=== PATIENT | female | born 1955 | race Caucasian/White ===

== ENCOUNTER 2023-06-02 07:26 | Outpatient (OUT) | payer MEDICARE, SELFPAY ==
--- NOTE | 2023-06-02 07:33 | MM_ITS ---
Patient: JESS SILVA Exam Date: 06/02/2023 : 1955 Gender:F Ordering : DR. HEYDI WALKER . Admission #: [id number] Family : Order #: [id number] CLICK HERE TO VIEW EXAM RADIOLOGY REPORT PROCEDURE: MM TOMOSYNTHESIS SCREENING BI COMPARISON: MG MAMM SCREEN 3D GEOVANNI CAD, 05/17/2021. MG MAMM SCREEN 3D GEOVANNI CAD, 05/18/2022. INDICATIONS: Screening Calculator Name NCI Breast Cancer Risk Assessment Tool 5 Year Breast Cancer Risk 1.90% Lifetime Breast Cancer Risk 6.20% Personal Breast Cancer No Personal Ovarian Cancer No Treatments None Family Cancers None LOCATION: [facility] BREAST COMPOSITION: Heterogeneously dense,which may obscure small masses. FINDINGS: DIAGNOSTIC CATEGORY 1--NEGATIVE. NO CHANGE FROM COMPARISON ASSESSMENT. Scattered benign-appearing calcifications are present. Scattered benign-appearing lymph nodes are present. RIGHT BREAST: No significant suspicious finding. LEFT BREAST: No significant suspicious finding. RECOMMENDATIONS: ROUTINE MAMMOGRAM AND CLINICAL EVALUATION IN 12 MONTHS. PLEASE NOTE: A NORMAL MAMMOGRAM DOES NOT EXCLUDE THE POSSIBILITY OF BREAST CANCER. A CLINICALLY SUSPICIOUS PALPABLE LUMP SHOULD BE BIOPSIED. Dictated by: Jovi Tristan MD on 06/02/2023 at 09:33 Approved by: Jovi Tristan MD on 06/02/2023 at 09:36
== END 2023-06-02 07:27 | disposition home or self-care (01) ==
LOC: MAMMO 07:26
PROVIDERS: PCP Family Medicine; Visit Provider Family Medicine
DX: Z12.31 Encounter for screening mammogram for malignant neoplasm of breast (principal)
CPT/HCPCS: 77063; 77067

== ENCOUNTER 2023-12-18 07:56 | Outpatient (OUT) | payer MEDICARE, SELFPAY ==
--- NOTE | 2023-12-18 08:04 | XR_ITS ---
[address] [address] Patient Name: JESS SILVA MRN: [id number] date: 1955 Sex: F Assigned Patient Location: [facility] Current Patient Location: [facility] Accession/Order Number: [id number] Exam Date: 12/18/2023 08:24 Report Date: 12/18/2023 09:04 At the request of: HEYDI WALKER Procedure: XR DEXA axial skeleton EXAMINATION: XR DEXA axial skeleton HISTORY: Primary Ovarian Failure E28.39 COMPARISON: DEXA bone densitometry 05/17/2021 TECHNIQUE: Dual-energy X-ray absorptiometry (DXA) was performed. FINDINGS: SPINE ANALYSIS: Average bone mineral density is 1.337 g/cm2. T-score (standard deviation relative to young adult mean): 1.1 . +1.4% change since prior study. HIP ANALYSIS: Lowest bone mineral density is within the left femoral trochanter, 0.569 g/cm2. T-score (standard deviation relative to young adult mean): -2.5 . -8.5% change since prior study. XR/XR DEXA axial skeleton IMPRESSION: [employer] Classification: Osteoporosis - High Fracture Risk Electronically authenticated by: SILVERIO WORLEY Date: 12/18/2023 09:04
== END 2023-12-18 07:57 | disposition home or self-care (01) ==
LOC: RAD 07:56
PROVIDERS: PCP Family Medicine; Visit Provider Family Medicine
DX: Z00.01 Encounter for general adult medical examination with abnormal findings (principal); E28.39 Other primary ovarian failure; M81.0 Age-related osteoporosis without current pathological fracture
CPT/HCPCS: 77080

== ENCOUNTER 2024-06-05 07:02 | Outpatient (OUT) | payer MEDICARE, SELFPAY ==
--- NOTE | 2024-06-05 07:05 | MM_ITS ---
Patient Name: JESS SILVA MR#: [id number] : 1955 Exam Date: 06/05/2024 Ordering Doctor: DR. HEYDI WALKER . RADIOLOGY REPORT PROCEDURE: MM TOMOSYNTHESIS SCREENING BI COMPARISON: MM TOMOSYNTHESIS SCREENING BI, 06/02/2023. MG MAMM SCREEN 3D GEOVANNI CAD, 05/18/2022. MG MAMM SCREEN 3D GEOVANNI CAD, 05/17/2021. MG MAMM GEOVANNI SCRN W CAD DIG, 04/09/2013. INDICATIONS: Screening for malignant neoplasm Calculator Name [facility] Breast Cancer Risk Assessment Tool 5 Year Breast Cancer Risk 1.90% Lifetime Breast Cancer Risk 5.90% Personal Breast Cancer No Personal Ovarian Cancer No Treatments None Family Cancers None LOCATION: [facility] BREAST COMPOSITION: The breasts are heterogeneously dense,which may obscure small masses. FINDINGS: DIAGNOSTIC CATEGORY 1--NEGATIVE. RIGHT BREAST: No significant suspicious finding. No significant change has occurred. LEFT BREAST: No significant suspicious finding. No significant change has occurred. RECOMMENDATIONS: ROUTINE MAMMOGRAM AND CLINICAL EVALUATION IN 12 MONTHS. PLEASE NOTE: A NORMAL MAMMOGRAM DOES NOT EXCLUDE THE POSSIBILITY OF BREAST CANCER. A CLINICALLY SUSPICIOUS PALPABLE LUMP SHOULD BE BIOPSIED. Dictated by: Charles Bolaños M.D. on 06/05/2024 at 13:51 Approved by: Charles Bolaños M.D. on 06/05/2024 at 14:00
--- OUTSIDE RECORDS SUMMARY | 2024-06-05 07:05 | XMS_ITS | CCD ---
Author Organization [facility] Care Team Providers Care Tour Bus Driver/Guide Name Role Phone MYKE FERMIN Primary Care Physician [phone] DENNIS, DR PENA Admitting Unavailable KARASIK, DR PENA Consulting Unavailable KARASIK, DR PENA Attending Unavailable FERMIN, DR MYKE Young Primary Care Unavailable HAY PURCELL Consulting Unavailable JOSE ANGEL, HIRAM Consulting Unavailable KARASIK, DR PENA Admitting Unavailable KARASIK, DR PENA Consulting Unavailable KARASIK, DR PENA Attending Unavailable FERMIN, DR MYKE Young Primary Care Unavailable KARASIK, DR PENA Admitting Unavailable KARASIK, DR PENA Attending Unavailable FERMIN, DR MYKE Young Primary Care Unavailable FERMIN, DR MYKE Young Primary Care Unavailable FERMIN, DR MYKE Young Consulting Unavailable FERMIN, DR MYKE Young Attending Unavailable FERMIN, DR MYKE Young Admitting Unavailable FERMIN, DR MYKE Young Primary Care Unavailable FERMIN, DR MYKE Young Consulting Unavailable FERMIN, DR MYKE Young Attending Unavailable FERMIN, DR MYKE Young Admitting Unavailable ZIEBER, DR CHARLES Hernandez Consulting Unavailable ASHLI, DR MYKE Young Consulting Unavailable ASHLI, DR MYKE Young Attending Unavailable FERMIN, DR MYKE Young Admitting Unavailable FERMIN, DR MYKE Young Primary Care Unavailable FERMIN, DR MYKE Young Consulting Unavailable FERMIN, DR MYKE Young Attending Unavailable FERMIN, DR MYKE Young Admitting Unavailable FERMIN, DR MYKE Young Primary Care Unavailable NICHELLE CARPENTER Attending Unavailable NICHELLE CARPENTER Attending Unavailable Ian Maurer. Attending Unavailable MARGARITA Esparza Attending Unavailable Ian Maurer. Attending Unavailable Ian Maurer Attending Unavailable Ian Maurer. Attending Unavailable Ian Maurer. Attending Unavailable Ian Maurer. Attending Unavailable Medications Current Medications Medication Drug Class(es) Dates Sig (Normalized) Sig (Original) Acidophilus Probiotic Blend (2 sources) Start: 04-15-2020 take 1 capsule by mouth once daily Acidophilus Probiotic Blend 1 cap(s), Oral, Daily, Refill(s) 0 Start Date: 04/15/20 Status: Ordered Cranberry preparation (2 sources) Non-Standardized Food Allergenic Extract, Non-Standardized Plant Allergenic Extract Start: 06-22-2022 take 2 tablets by mouth once daily Azo cranberry 2 tab(s), Oral, Daily, Refill(s) 0 Start Date: 06/22/22 Status: Ordered Start: 06-22-2022 Azo cranberry Refill(s) 0 Start Date: 06/22/22 Status: Ordered Multivitamin, Therapeutic w/ Minerals (2 sources) Start: 04-15-2020 take 1 tablet by mouth once daily Multivitamin, Therapeutic w/ Minerals 1 tab(s), Oral, Daily, Refill(s) 0 Start Date: 04/15/20 Status: Ordered Vitamin B Complex with C, Folic Acid, Iron and Probiotics oral capsule (1 source) Start: 06-22-2022 take 1 capsule by mouth once daily Vitamin B Complex with C, Folic Acid, Iron and Probiotics oral capsule cap(s), Oral, Daily, Refill(s) 0 Start Date: 06/22/22 Status: Ordered Completed/Discontinued Medications Medication Drug Class(es) Dates Sig (Normalized) Sig (Original) cephalexin 500 mg oral capsule (2 sources) Cephalosporin Antibacterial Start: 06-22-2022 take 1 tablet by mouth every twelve hours Keflex 500 mg Cap 500 mg = 1 cap(s), Oral, Daily, Take 1 tablet day before procedure, and then 1 tablet 12 hrs later, # 2 cap(s), Refills(s) 0, Pharmacy: [facility]/pharmacy #[id number] Start Date: 06/22/22 Status: Ordered Problems Active Problems Problem Classification Problem Date Documented Date Episodic/Chronic Disorders of lipid metabolism (1 source) Pure hypercholesterolemia, unspecified; Translations: [PURE HYPERCHOLESTEROLEMIA UNSPEC] Onset: 3 Chronic Malaise and fatigue (4 sources) Other fatigue; Translations: [OTHER FATIGUE] Onset: 3 Episodic Other diseases of bladder and urethra (3 sources) Urethral stricture; Translations: [Unspecified urethral stricture, female] Onset: 2 Episodic Other screening for suspected conditions (not mental disorders or infectious disease) (8 sources) Encounter for screening for malignant neoplasm of cervix; Translations: [Encounter for screening mammogram for malignant neoplasm of breast] Onset: 2 Episodic Prolapse of female genital organs (11 sources) Uterovaginal prolapse; Translations: [Uterovaginal prolapse, unspecified] Onset: 2 Chronic Unclassified (2 sources) Patient encounter status 04-15-2020 Past or Other Problems Problem Classification Problem Date Documented Da te Episodic/Chronic Genitourinary symptoms and ill-defined conditions (12 sources) Delay when starting to pass urine; Translations: [Incomplete emptying of bladder] Onset: 08-30-2022 04-04-2019 Episodic Other diseases of bladder and urethra (1 source) Urethral caruncle; Translations: [URETHRAL CARUNCLE] Onset: 08-30-2022 Episodic Other gastrointestinal disorders (1 source) Constipation, unspecified; Translations: [CONSTIPATION UNSPECIFIED] Onset: 08-30-2022 Episodic Screening and history of mental health and substance abuse codes (3 sources) Ex-smoker; Translations: [Personal history of nicotine dependence] Onset: 08-30-2022 07-30-2019 Episodic Urinary tract infections (5 sources) Urinary tract infectious disease; Translations: [Urinary tract infection, site not specified] Onset: 06-10-2022 Episodic Results Test Name Value Interpretation Reference Range Facil ity Ambulatory Visit Summaryon 0 05-14-2024 Ambulatory Visit Summary Ambulatory Visit Summary JESS SILVA Blake :1955 Visit Date:05/14/2024 Ambulatory Visit Instructions Your Diagnosis White coat syndrome with high blood pressure but without hypertension Overactive bladder BMI 27.0-27.9,adult Over weight Former smoker Your Care Team Attending Physician - Ian Maurer MD Primary Care Physician - Ian Maurer MD This Is Your Medications List Contact prescribing physician if questions or concerns alendronate (Fosamax 70 mg Tab) cranberry (Azo cranberry) lactobacillus acidophilus (Acidophilus Probiotic Blend) multivitamin with minerals (Multivitamin, Therapeutic w/ Minerals) [Image Removed: STOP]Stop taking these medications oxybutynin (oxybutynin 5 mg ER Tab) Procedures Performed Cystourethroscopy with dilation of urethral stricture (10/01/2018), Colonoscopy (10/30/2009), Appendectomy (10/30/2005), Bilateral tubal ligation (10/30/1993), Cystoscopy, Surgery, Tonsillectomy. Discharge Vitals Temperature (Oral) 36.6 ?C Heart Rate (Peripheral) 70 Respiratory Rate 16 Blood Pressure 138/70 Height 63 in Height 160 cm Weight 153.78 lb Weight 69.9 kg BMI 27.3 What to do next Scheduled Follow-Up Appointments Monday 8:20 AM EST With: Leila Drummond Where: [facility] [place] [facility] [address] [id number] \.br\ Medications\.br\ What How Much When Instructions\.br\ Unchanged alendronate (Fosamax 70 mg Tab) 1 Tablets By Mouth Every 7 days Contact prescribing physician if questions or concerns \.br\ Unchanged cranberry (Azo cranberry) 2 Tablets By Mouth Every day Contact prescribing physician if questions or concerns \.br\ Unchanged lactobacillus acidophilus (Acidophilus Probiotic Blend) 1 Capsules By Mouth Every day Contact prescribing physician if questions or concerns \.br\ Unchanged multivitamin with minerals (Multivitamin, Therapeutic w/ Minerals) 1 Tablets By Mouth Every day Contact prescribing physician if questions or concerns \.br\ \.br\ What How Much When Comments\.br\ Stop Taking oxybutynin (oxybutynin 5 mg ER Tab) 1 Tablets By Mouth Every day\.br\ Allergies\.br\ No Known Allergies\.br\ Problems\.br\ Ongoing - Any problem that you are currently receiving treatment for.\.br\ Cystocele with prolapse\.br\ Former smoker\.br\ Incomplete bladder emptying\.br\ Microscopic hematuria\.br\ Overactive bladder\.br\ Screening for malignant neoplasm of colon\.br\ Unspecified urethral stricture, female\.br\ White coat syndrome with high blood pressure but without hypertension\.br\ Patient Survey\.br\ You may receive a survey via text or e-mail asking about your office visit. Please share your experience with us by completing your survey. We appreciate your feedback and thank you for choosing us for your care.\.br\ Education Materials\.br\ Hypertension, Adult\.br\ High blood pressure (hypertension) is when the force of blood pumping through the arteries is too strong. The arteries are the blood vessels that carry blood from the heart throughout the body. Hypertension forces the heart to work harder to pump blood and may cause arteries to become narrow or stiff. Untreated or uncontrolled hypertension can lead to a heart attack, heart failure, a stroke, kidney disease, and other problems.\.br\ A blood pressure reading consists of a higher number over a lower number. Ideally, your blood pressure should be below 120/80. The first ( top ) number is called the systolic pressure. It is a measure of the pressure in your arteries as your heart beats. The second ( bottom ) number is called the diastolic pressure. It is a measure of the pressure in your arteries as the heart relaxes.\.br\ What are the causes?\.br\ The exact cause of this condition is not known. There are some conditions that result in high blood pressure.\.br\ What increases the risk?\.br\ Certain factors may make you more likely to develop high blood pressure. Some of these risk factors are under your control, including:\.br\ ? \.br\ Smoking.\.br\ ? \.br\ Not getting enough exercise or physical activity.\.br\ ? \.br\ Being overweight.\.br\ ? \.br\ Having too much fat, sugar, calories, or salt (sodium) in your diet.\.br\ ? \.br\ Drinking too much alcohol.\.br\ Other risk factors include:\.br\ ? \.br\ Having a personal history of heart disease, diabetes, high cholesterol, or kidney disease.\.br\ ? \.br\ Stress.\.br\ ? \.br\ Having a family history of high blood pressure and high cholesterol.\.br\ ? \.br\ Having obstructive sleep apnea.\.br\ ? \.br\ Age. The risk increases with age.\.br\ What are the signs or symptoms?\.br\ High blood pressure may not cause symptoms. Very high blood pressure (hypertensive crisis) may cause:\.br\ ? \.br\ Headache.\.br\ ? \.br\ Fast or irregular heartbeats (palpitations).\. br\ ? \.br\ Shortness of breath.\.br\ ? \.br\ Nosebleed.\.br\ ? \.br\ Nausea and vomiting.\.br\ ? \.br\ Vision changes.\.br\ ? \.br\ Severe chest pain, dizziness, and seizures.\.br\ How is this diagnosed?\.br\ This condition is diagnosed by measuring your blood pressure while you are seated, with your arm resting on a flat surface, your legs uncrossed, and your feet flat on the floor. The cuff of the blood pressure monitor will be placed directly against the skin of your upper arm at the level of your heart. Blood pressure should be measured at least twice using the same arm. Certain conditions can cause a difference in blood pressure between your right and left arms.\.br\ If you have a high blood pressure reading during one visit or you have normal blood pressure with other risk factors, you may be asked to:\.br\ ? \.br\ Return on a different day to have your blood pressure checked again.\.br\ ? \.br\ Monitor your blood pressure at home for 1 week or longer.\.br\ If you are diagnosed with hypertension, you may have other blood or imaging tests to help your health care provider understand your overall risk for other conditions.\.br\ How is this treated?\.br\ This condition is treated by making healthy lifestyle changes, such as eating healthy foods, exercising more, and reducing your alcohol intake. You may be referred for counseling on a healthy diet and physical activity.\.br\ Your health care provider may prescribe medicine if lifestyle changes are not enough to get your blood pressure under control and if:\.br\ ? \.br\ Your systolic blood pressure is above 130.\.br\ ? \.br\ Your diastolic blood pressure is above 80.\.br\ Your personal target blood pressure may vary depending on your medical conditions, your age, and other factors.\.br\ Follow these instructions at home:\.br\ Eating and drinking\.br\ \.br\ ? \.br\ Eat a diet that is high in fiber and potassium, and low in sodium, added sugar, and fat. An example of this eating plan is called the DASH diet. DASH stands for Dietary Approaches to Stop Hypertension. To eat this way:\.br\ ? \.br\ Eat plenty of fresh fruits and vegetables. Try to fill one half of your plate at each meal with fruits and vegetables.\.br\ ? \.br\ Eat whole grains, such as whole-wheat pasta, brown rice, or whole-grain bread. Fill about one fourth of your plate with whole grains.\.br\ ? \.br\ Eat or drink low-fat dairy products, such as skim milk or low-fat yogurt.\.br\ ? \.br\ Avoid fatty cuts of meat, processed or cured meats, and poultry with skin. Fill about one fourth of your plate with lean proteins, such as fish, chicken without skin, beans, eggs, or tofu.\.br\ ? \.br\ Avoid pre-made and processed foods. These tend to be higher in sodium, added sugar, and fat.\.br\ ? \.br\ Reduce your daily sodium intake. Many people with hypertension should eat less than 1,500 mg of sodium a day.\.br\ ? \.br\ Do not drink alcohol if:\.br\ ? \.br\ Your health care provider tells you not to drink.\.br\ ? \.br\ You are , may be , or are planning to become .\.br\ ? \.br\ If you drink alcohol:\.br\ ? \.br\ Limit how much you have to:\.br\ ? \.br\ 0?1 drink a day for women.\.br\ ? \.br\ 0?2 drinks a day for men.\.br\ ? \.br\ Know how much alcohol is in your drink. In the [place] one drink equals one 12 oz bottle of beer (355 mL), one 5 oz glass of wine (148 mL), or one 1? oz glass of hard liquor (44 mL).\.br\ Lifestyle\.br\ \.br\ ? \.br\ Work with your health care provider to maintain a healthy body weight or to lose weight. Ask what an ideal weight is for you.\.br\ ? \.br\ Get at least 30 minutes of exercise that causes your heart to beat faster (aerobic exercise) most days of the week. Activities may include walking, swimming, or biking.\.br\ ? \.br\ Include exercise to strengthen your muscles (resistance exercise), such [facility] Family Medicine Office/Clini c Noteon 05-14-2024 Family Medicine Office/Clinic Note Family Medicine Office/Clinic Note [facility] Staff Jess is a 68 year old female presenting for 3 month follow up overactive bladder and BP CRISTINA to try oxybutinin Took the oxybutinin wasn't helping so didn't refill it Patient is here for follow up on hypertension. How often are you checking your blood pressure? brought a log with her What are your average readings? _ Yearly BMP: 03/06/24 questions/concerns: bp always high at drs office at home 140/84 at 5:30am and 139/70 at 6:30am I took and got 140/84 here in office Mammogram due after 06/02/24 History of Present Illness Patient is here for follow-up. Blood pressures at home are running within normal limits. Patient brought log today. Patient's blood pressure slightly elevated at first here. Patient is working on anxiety relieving techniques without medication. Patient is still having urinary symptoms despite medication so patient decided to go off of them. Review of Systems PHQ Score Initial Depression Screen Score: 0 SCORE Physical Exam Vitals & Measurements T: 36.6 ?C(Oral) HR: 70(Peripheral) RR: 16 BP: 138/70 SpO2: 98% HT: 63 in HT: 160 cm WT: 69.9 kg WT: 153.78 lb BMI: 27.3 General: alert, no acute distress ENMT: oral mucosa moist, Cardiovascular: regular rate and rhythm, normal peripheral perfusion Respiratory: Lungs CTA, respirations non labored Extremities: no deformity, no trauma Neurological: oriented x 4, LOC appropriate for age, CN II-XII intact, motor strength equal & normal bilaterally, speech normal Abdomen: Soft, Nontender, Non-distended, + BS Assessment/Plan 1. White coat syndrome with high blood pressure but without hypertension (R03.0: Elevated blood-pressure reading, without diagnosis of hypertension) - No issues at this time. - Home readings reviewed - NO issues at this time. 2. Overactive bladder (N32.81: Overactive bladder) - Continues to have issues, however meds did not work. - Not interested in referral at this time. 3. BMI 27.0-27.9,adult (Z68.27: Body mass index [BMI] 27.0-27.9, adult) 4. Over weight (E66.3: Overweight) 5. Former smoker (Z87.891: Personal history of nicotine dependence) Follow-up No qualifying data available Patient Education Hypertension, Adult Problem List/Past Medical History Ongoing Cystocele with prolapse Former smoker Incomplete bladder emptying Microscopic hematuria Overactive bladder Screening for malignant neoplasm of colon Unspecified urethral stricture, female White coat syndrome with high blood pressure but without hypertension Historical No qualifying data Procedure/Surgical History Cystourethroscopy with dilation of urethral stricture (10/01/2018), Colonoscopy (10/30/2009), Appendectomy (10/30/2005), Bilateral tubal ligation (10/30/1993), Cystoscopy, Surgery, Tonsillectomy. Medications Acidophilus Probiotic Blend, 1 cap(s), Oral, Daily Azo cranberry, 2 tab(s), Oral, Daily Fosamax 70 mg Tab, 70 mg= 1 tab(s), Oral, q7day, 3 refills Multivitamin, Therapeutic w/ Minerals, 1 tab(s), Oral, Daily Allergies No Known Allergies Social History Alcohol Current, Wine, 1-2 times per week, Household alcohol concerns: No., 12/13/2023 Substance Abuse - Denies Substance Abuse, 04/15/2020 Tobacco Former smoker, quit more than 30 days ago Tobacco Use:. Never Smokeless Tobacco Use:. Cigarettes, Household tobacco concerns: No., 05/14/2024 Family History Alcoholism: Father. Esophageal cancer: Father. Heart disease: Mother. Hypertension: Mother. Hyperthyroidism: Mother. Immunizations Vaccine Date Status Comments influenza virus vaccine, inactivated 07/19/2023 Recorded pneumococcal 23-valent vaccine 01/04/2023 Recorded diphtheria/pertussis , acel/tetanus adult 10/05/2022 Recorded SARS-CoV-2 (COVID-19) [id number] 10/05/2022 Recorded influenza virus vaccine, inactivated 08/08/2022 Recorded SARS-CoV-2 mRNA (tozinameran 5y-11y) vac - Not Given Postpone due to refusal SARSCoV2 mRNA(tozinamer-valdez- sucros) vac 02/07/2022 Recorded zoster vaccine, inactivated 01/18/2022 Recorded SARS-CoV-2 (COVID-19) mRNA BNT-162b2 vax 07/27/2021 Recorded 2023-12-04: [id number] SARS-CoV-2 (COVID-19) mRNA BNT-162b2 vax 01/19/2021 Recorded SARS-CoV-2 (COVID-19) mRNA BNT-162b2 vax 12/28/2020 Recorded influenza virus vaccine, inactivated 08/04/2020 Recorded influenza virus vaccine, inactivated 07/31/[address] [facility] Comment on above: Result Comment: Elec tronically Signed By: Ian Maurer MD\.br\Date and Time Signed: 05/14/24 07:48 EDT Lab Reportson 03-14-2024 Lab Reports [id number]# 1.00TIFF Normal [facility] Ambulatory Visit Summaryon 0 02-12-2024 Ambulatory Visit Summary JESS SILVA :1955 Visit Date:02/12/2024 Ambulatory Visit Instructions Your Diagnosis White coat syndrome with high blood pressure but without hypertension Overactive bladder BMI 27.0-27.9,adult Overweight Former smoker Your Care Team Attending Physician - Ian Maurer MD Primary Care Physician - Ian Maurer MD This Is Your Medications List oxybutynin (oxybutynin 5 mg ER Tab) Contact prescribing physician if questions or concerns alendronate (Fosamax 70 mg Tab) cranberry (Azo cranberry) lactobacillus acidophilus (Acidophilus Probiotic Blend) multivitamin with minerals (Multivitamin, Therapeutic w/ Minerals) Procedures Performed Cystourethroscopy with dilation of urethral stricture (10/01/2018), Colonoscopy (10/30/2009), Appendectomy (10/30/2005), Bilateral tubal ligation (10/30/1993), Cystoscopy, Surgery, Tonsillectomy. Discharge Vitals Temperature (Oral) 36.6 ?C Heart Rate (Peripheral) 72 Respiratory Rate 16 Blood Pressure 132/78 Height 63 in Height 160 cm Weight 157.52 lb Weight 71.6 kg BMI 27.97 What to do next Scheduled Follow-Up Appointments Monday 7:15 AM EDT With: Ian Maurer MD Where: [facility] [place] [address] [place] [address]- \.br\ Medications\.br\ What How Much When Instructions\.br\ New oxybutynin (oxybutynin 5 mg ER Tab) 1 Tablets By Mouth Every day Pickup at [facility]/pharmacy #[id number]\.br\ Unchanged alendronate (Fosamax 70 mg Tab) 1 Tablets By Mouth Every 7 days Contact prescribing physician if questions or concerns \.br\ Unchanged cranberry (Azo cranberry) 2 Tablets By Mouth Every day Contact prescribing physician if questions or concerns \.br\ Unchanged lactobacillus acidophilus (Acidophilus Probiotic Blend) 1 Capsules By Mouth Every day Contact prescribing physician if questions or concerns \.br\ Unchanged multivitamin with minerals (Multivitamin, Therapeutic w/ Minerals) 1 Tablets By Mouth Every day Contact prescribing physician if questions or concerns \.br\ Pharmacy Information\.br\ [facility]/pharmacy #[id number]: [address], [place] [phone]\.br\ Allergies\.br\ No Known Allergies\.br\ Problems\.br\ Ongoing - Any problem that you are currently receiving treatment for.\.br\ Cystocele with prolapse\.br\ Former smoker\.br\ Incomplete bladder emptying\.br\ Microscopic hematuria\.br\ Overactive bladder\.br\ Screening for malignant neoplasm of colon\.br\ Unspecified urethral stricture, female\.br\ White coat syndrome with high blood pressure but without hypertension\.br\ Patient Survey\.br\ You may receive a survey via text or e-mail asking about your office visit. Please share your experience with us by completing your survey. We appreciate your feedback and thank you for choosing us for your care.\.br\ \.br\ [facility] Family Medicine Office/Clini c Noteon 02-12-2024 Family Medicine Office/Clinic Note HPI Staff Jess is a 68 year old female presenting for 2 month follow up BP without htn dx How often are you checking your blood pressure? almost daily sometimes twice a day What are your average readings? all over the palce Yearly BMP: 12/09/22 questions/concerns: still urinating a lot at night is there something she can take for over active bladder. Not much trouble during the day, it's mainly at night. Had medicare wellness and nurse suggested she ask you History of Present Illness Pt here BP follow up. - No issues at this time other than the overactive bladder. - Pt wants to try something for this. Review of Systems PHQ Score Initial Depression Screen Score: 0 SCORE Physical Exam Vitals & Measurements T: 36.6 ?C(Oral) HR: 72(Peripheral) RR: 16 BP: 132/78 SpO2: 99% HT: 63 in HT: 160 cm WT: 71.6 kg WT: 157.52 lb BMI: 27.97 General: alert, no acute distress ENMT: oral mucosa moist, Cardiovascular: regular rate and rhythm, normal peripheral perfusion Respiratory: Lungs CTA, respirations non labored Extremities: no deformity, no trauma Neurological: oriented x 4, LOC appropriate for age, CN II-XII intact, motor strength equal & normal bilaterally, speech normal Abdomen: Soft, Nontender, Non-distended, + BS Assessment/Plan 1. White coat syndrome with high blood pressure but without hypertension (R03.0: Elevated blood-pressure reading, without diagnosis of hypertension) - No issues with home readins. - Home monitor checked - Will monitor. Ordered: Body Mass Index (BMI) documented 3008F Current tobacco non-user 1036F Depression Screening Negative 3352F Influenza immunization administered or previously received 4274F Most recent diastolic blood pressure 80-89 mm Hg 3079F Most recent systolic blood pressure >= 140 mm Hg 3077F Patient screen for fall risk: no falls in last year or 1 fall with no injury in last year 1101F 2. Overactive bladder (N32.81: Overactive bladder) - Will try Oxybutinin - Follow up in 3 months 3. BMI 27.0-27.9,adult (Z68.27: Body mass index [BMI] 27.0-27.9, adult) - BMI education given Ordered: Body Mass Index (BMI) documented 3008F Current tobacco non-user 1036F Depression Screening Negative 3352F Influenza immunization administered or previously received 4274F Most recent diastolic blood pressure 80-89 mm Hg 3079F Most recent systolic blood pressure >= 140 mm Hg 3077F Patient screen for fall risk: no falls in last year or 1 fall with no injury in last year 1101F 4. Overweight (E66.3: Overweight) - Diet and exercise advised Ordered: Body Mass Index (BMI) documented 3008F Current tobacco non-user 1036F Depression Screening Negative 3352F Influenza immunization administered or previously received 4274F Most recent diastolic blood pressure 80-89 mm Hg 3079F Most recent systolic blood pressure >= 140 mm Hg 3077F Patient screen for fall risk: no falls in last year or 1 fall with no injury in last year 1101F 5. Former smoker (Z87.891: Personal history of nicotine dependence) - Please continue to not smoke Ordered: Body Mass Index (BMI) documented 3008F Current tobacco non-user 1036F Depression Screening Negative 3352F Influenza immunization administered or previously received 4274F Most recent diastolic blood pressure 80-89 mm Hg 3079F Most recent systolic blood pressure >= 140 mm Hg 3077F Patient screen for fall risk: no falls in last year or 1 fall with no injury in last year 1101F Orders: oxybutynin, 5 mg = 1 tab(s), Oral, Daily, # 90 tab(s), Refills(s) 0, Pharmacy: [facility]/pharmacy #[id number], 160, cm, 02/12/24 7:18:00 EDT, Height/Length Dosing, 71.6, kg, 02/12/24 7:18:00 EDT, Weight Dosing Follow-up No qualifying data available Problem List/Past Medical History Ongoing Cystocele with prolapse Former smoker Incomplete bladder emptying Microscopic hematuria Overactive bladder Screening for malignant neoplasm of colon Unspecified urethral stricture, female White coat syndrome with high blood pressure but without hypertension Historical No qualifying data Procedure/Surgical History Cystourethroscopy with dilation of urethral stricture (10/01/2018), Colonoscopy (10/30/2009), Appendectomy (10/30/2005), Bilateral tubal ligation (10/30/1993), Cystoscopy, Surgery, Tonsillectomy. Medications Acidophilus Probiotic Blend, 1 cap(s), Oral, Daily Azo cranberry, 2 tab(s), Oral, Daily Fosamax 70 mg Tab, 70 mg= 1 tab(s), Oral, q7day, 3 refills Multivitamin, Therapeutic w/ Minerals, 1 tab(s), Oral, Daily oxybutynin 5 mg ER Tab, 5 mg= 1 tab(s), Oral, Daily Allergies No Known Allergies Social History Alcohol Current, Wine, 1-2 times per week, Household alcohol concerns: No., 12/13/2023 Substance Abuse - Denies Substance Abuse, 04/15/2020 Tobacco Former smoker, quit more than 30 days ago Tobacco Use:. Never Smokeless Tobacco Use:. Cigarettes, Household tobacco concerns: No., 02/12/2024 Family History Alcoho (more content not included)... Normal [facility] Comment on above: Result Comment: Elec tronically Signed By: Erasto STEIN, Ian Hernandez\.br\Date and Time Signed: 02/12/24 07:39 EDT Dexa Scanson 12-21-2023 Dexa Scans [id number] #1.00TIFF [facility] Dexa Scans [id number] #1.00TIFF [facility] Ambulatory Visit Summaryon 0 12-13-2023 Ambulatory Visit Summary JESS SILVA :1955 Visit Date:12/13/2023 Ambulatory Visit Instructions Your Diagnosis Annual visit for general adult medical examination with abnormal findings Encounter for screening for other disorder Ovarian failure White coat syndrome with high blood pressure but without hypertension Frequent urination Adult BMI 27.0-27.9 kg/sq m Tests Performed BD Bone Density DEXA -- Results Pending -- Please visit your patient portal for your results or contact your primary care physician. Your Care Team Attending Physician - Ian Maurer MD Primary Care Physician - Ian Maurer MD This Is Your Medications List cranberry (Azo cranberry) lactobacillus acidophilus (Acidophilus Probiotic Blend) multivitamin with minerals (Multivitamin, Therapeutic w/ Minerals) Procedures Performed Cystourethroscopy with dilation of urethral stricture (10/01/2018), Colonoscopy (10/30/2009), Appendectomy (10/30/2005), Bilateral tubal ligation (10/30/1993), Cystoscopy, Surgery, Tonsillectomy. Discharge Vitals Heart Rate (Peripheral) 80 Blood Pressure 170/100 Height 63 in Height 160 cm Weight 155.98 lb Weight 70.9 kg BMI 27.7 What to do next Scheduled Follow-Up Appointments Monday 7:15 AM EDT With: Erasto STEIN, Ian Hernandez Where: [facility] [address] [facility] [address] [place] [address]- \.br\ Medications\.br\ What How Much When Instructions\.br\ Unchanged cranberry (Azo cranberry) 2 Tablets By Mouth Every day\.br\ Unchanged lactobacillus acidophilus (Acidophilus Probiotic Blend) 1 Capsules By Mouth Every day\.br\ Unchanged multivitamin with minerals (Multivitamin, Therapeutic w/ Minerals) 1 Tablets By Mouth Every day\.br\ Allergies\.br\ No Known Allergies\.br\ Problems\.br\ Ongoing - Any problem that you are currently receiving treatment for.\.br\ Cystocele with prolapse\.br\ Encounter to establish care\.br\ Female bladder prolapse\.br\ Former smoker\.br\ Frequent urination\.br\ Hesitancy\.br\ Incomplete bladder emptying\.br\ Microscopic hematuria\.br\ Nocturia\.br\ Screening for malignant neoplasm of colon\.br\ Unspecified urethral stricture, female\.br\ Vaginal prolapse\.br\ White coat syndrome with high blood pressure but without hypertension\.br\ Patient Survey\.br\ You may receive a survey via text or e-mail asking about your office visit. Please share your experience with us by completing your survey. We appreciate your feedback and thank you for choosing us for your care.\.br\ Education Materials\.br\ Fall Prevention in the Home, Adult\.br\ Falls can cause injuries and affect people of all ages. There are many simple things that you can do to make your home safe and to help prevent falls. Ask for help when making these changes, if needed.\.br\ What actions can I take to prevent falls?\.br\ General instructions\.br\ ? \.br\ Use good lighting in all rooms. Replace any light bulbs that burn out, turn on lights if it is dark, and use night-lights.\.br \ ? \.br\ Place frequently used items in tgav-px-bqwon places. Lower the shelves around your home if necessary.\.br\ ? \.br\ Set up furniture so that there are clear paths around it. Avoid moving your furniture around.\.br\ ? \.br\ Remove throw rugs and other tripping hazards from the floor.\.br\ ? \.br\ Avoid walking on wet floors.\.br\ ? \.br\ Fix any uneven floor surfaces.\.br\ ? \.br\ Add color or contrast paint or tape to grab bars and handrails in your home. Place contrasting color strips on the first and last steps of staircases.\.br\ ? \.br\ When you use a stepladder, make sure that it is completely opened and that the sides and supports are firmly locked. Have someone hold the ladder while you are using it. Do not climb a closed stepladder.\.br\ ? \.br\ Know where your pets are when moving through your home.\.br\ What can I do in the bathroom?\.br\ \.br\ \.br\ ? \.br\ Keep the floor dry. Immediately clean up any water that is on the floor.\.br\ ? \.br\ Remove soap buildup in the tub or shower regularly.\.br\ ? \.br\ Use nonskid mats or decals on the floor of the tub or shower.\.br\ ? \.br\ Attach bath mats securely with double-sided, nonslip rug tape.\.br\ ? \.br\ If you need to sit down while you are in the shower, use a plastic, nonslip stool.\.br\ ? \.br\ Install grab bars by the toilet and in the tub and shower. Do not use towel bars as grab bars.\.br\ What can I do in the bedroom?\.br\ ? \.br\ Make sure that a bedside light is easy to reach.\.br\ ? \.br\ Do not use oversized bedding that reaches the floor.\.br\ ? \.br\ Have a firm chair that has side arms to use for getting dressed.\.br\ What can I do in the kitchen?\.br\ ? \.br\ Clean up any spills right away.\.br\ ? \.br\ If you need to reach for something above you, use a sturdy step stool that has a grab bar.\.br\ ? \.br\ Keep electrical cables out of the way.\.br\ ? \.br\ Do not use floor wallisian or wax that makes floors slippery. If you must use wax, make sure that it is non-skid floor wax.\.br\ What can I do with my stairs?\.br\ ? \.br\ Do not leave any items on the stairs.\.br\ ? \.br\ Make sure that you have a light switch at the top and the bottom of the stairs. Have them installed if you do not have them.\.br\ ? \.br\ Make sure that there are handrails on both sides of the stairs. Fix handrails that are broken or loose. Make sure that handrails are as long as the staircases.\.br\ ? \.br\ Install non-slip stair treads on all stairs in your home.\.br\ ? \.br\ Avoid having throw rugs at the top or bottom of stairs, or secure the rugs with carpet tape to prevent them from moving.\.br\ ? \.br\ Choose a carpet design that does not hide the edge of steps on the stairs.\.br\ ? \.br\ Check any carpeting to make sure that it is firmly attached to the stairs. Fix any carpet that is loose or worn.\.br\ What can I do on the outside of my home?\.br\ ? \.br\ Use bright outdoor lighting.\.br\ ? \.br\ Regularly repair the edges of walkways and driveways and fix any cracks.\.br\ ? \.br\ Remove high doorway thresholds.\.br\ ? \.br\ Trim any shrubbery on the main path into your home.\.br\ ? \.br\ Regularly check that handrails are securely fastened and in good repair. Both sides of all steps should have handrails.\.br\ ? \.br\ Install guardrails along the edges of any raised decks or porches.\.br\ ? \.br\ Clear walkways of debris and clutter, including tools and rocks.\.br\ ? \.br\ Have leaves, snow, and ice cleared regularly.\.br\ ? \.br\ Use sand or salt on walkways during winter months.\.br\ ? \.br\ In the garage, clean up any spills right away, including grease or oil spills.\.br\ What other actions can I take?\.br\ ? \.br\ Wear closed-toe shoes that fit well and support your feet. Wear shoes that have rubber soles or low heels.\.br\ ? \.br\ Use mobility aids as needed, such as canes, walkers, scooters, and crutches.\.br\ ? \.br\ Review your medicines with your health care provider. Some medicines can cause dizziness or changes in blood pressure, which increase your risk of falling.\.br\ Talk with your health care provider about other ways that you can decrease your risk of falls. This may include working with a physical therapist or guide dog trainer to improve your strength, balance, and endurance.\.br\ Where to find more information\.br\ ? \.br\ Centers for Disease Control and Prevention, [place]: www.cdc.gov\.br\ ? \.br\ National [place] on Aging: www.tejas.nih.gov\. br\ Contact a health care provider if:\.br\ ? \.br\ You are afraid of falling at home.\.br\ ? \.br\ You feel weak, drowsy, or dizzy at home.\.br\ ? \.br\ You fall at home.\.br\ Summary\.br\ ? \.br\ There are many simple things that you can do to make your home safe and to help prevent falls.\.br\ ? \.br\ Ways to make your home safe include removing tripping hazards and installing grab bars in the bathroom.\.br\ ? \.br\ Ask for help when making these changes in your home.\.br\ This information is not intended to replace advice given to you by your health care provider. Make sure you discuss any questions you have with your health care provider.\.br\ Document Revised: 07/18/2022 Document Reviewed: 05/19/2021 [employer] Patient Education ? 2022 [employer].br\ DASH Eating Plan\.br\ DASH stands for Dietary Approaches to Stop Hypertension. The DASH eating plan is a healthy eating plan that has been shown to:\.br\ ? \.br\ Reduce high blood pressure (hypertension).\. br\ ? \.br\ Reduce your risk for type 2 diabetes, heart disease, and stroke.\.br\ ? \.br\ Help with weight loss.\.br\ [facility] Family Medicine Office/Clini c Noteon 12-13-2023 Family Medicine Office/Clinic Note Chief Complaint Subsequent Medicare Wellness Review of Systems PHQ Score Initial Depression Screen Score: 0 SCORE Physical Exam Vitals & Measurements HR: 80(Peripheral) BP: 170/100 SpO2: 99% HT: 160 cm HT: 63 in WT: 70.9 kg WT: 155.98 lb BMI: 27.7 Assessment/Plan 1. Annual visit for general adult medical examination with abnormal findings (Z00.01: Encounter for general adult medical examination with abnormal findings) The patient was given a customized and personalized print out of all the current AHRQ USPSTF?s recommendations for preventative services and all current CDC recommended immunizations, relevant risk recommendations and the following patient brochures were given. Reviewed Medicare preventative services checklist. CDC-Falls Prevention and home safety screening reviewed. Patient denies any falls in last 12 months, voices no worry about falling, exhibits no problems with sitting and standing. Pt voices understanding with keeping walk way area free of clutter to prevent tripping and/or falling. [place] Advance Directives reviewed, patient has home. Patient denies any problems with ADL?s and Instrumental ADL?s. Cognitive screening completed with memory and clock face drawing. Immunization Record reviewed with the patient. COVID vaccines have been administered, immunization record is up to date. Allergies and medications reviewed and up to date. Patient denies concerns with taking medication as prescribed, reviewed OTC medications with patient, medication list up to date. Blood tests were reviewed: are UTD Colonoscopy up to date, due for repeat 2029. Mammogram up to date, last completed 06/02/2023. Reviewed pain symptoms with patient: pain symptoms denied. Reviewed all outside providers that patient follows. Last visit summary notes available in chart and/or have been requested. Follow up scheduled, 02/12/24 AWV has been scheduled, 12/16/24 Abnormal findings with elevated BP, serial assessment completed and documented. 2. Encounter for screening for other disorder (Z13.89: Encounter for screening for other disorder) Medicare provides yearly screening for alcohol and depression concerns. This is completed during our Medicare Wellness visit for those who do not have a current diagnosis of depression or concerns with alcohol use. I spent a total of 17 minutes on this date of service which included preparing to see the patient, face to face patient care, completing clinical documentation, obtaining and/or reviewing separately obtained history, counseling and educating the patient with handouts. Explanations were provided with reviewing questionnaires. AUDIT risk assessment screening completed, risk score 2, with patient denying concerns with use. Completed PHQ-2 risk assessment for depression with risk score 0, negative findings. Patient has been reminded to notify the provider if there would be a change or concerns with symptoms with fear, unable to sleep, worrying too much or feeling down and/or sad with lost of interest with daily activities. Will continue to monitor with screening yearly during Medicare wellness visits. 3. Ovarian failure (E28.39: Other primary ovarian failure) Reviewed recommended bone mineral density testing for women who are 65 years of age or older. Educational handout for Bone Health reviewed and provided to the patient during today's Medicare Wellness visit. Medicare recommends testing every 5 years if results are WNL and every 2 years if results shows low bone mass. This is a deterioration of bone structure and can increase the risk of a fracture with falls. Eating a well-balanced diet with plenty of Calcium and Vitamin D will help to protect your bones. Daily weight-bearing physical activity can help build strong bones, improve bone amounts, and may reduce the risk of weakening of bones (Osteoporosis) later in life. Dexa scan ordered, faxed to [facility]. 4. White coat syndrome with high blood pressure but without hypertension (R03.0: Elevated blood-pressure reading, without diagnosis of hypertension) BP in office today 170/100. Patient monitors her BP at home daily, states her readings are WNL. DASH diet discussed and provided with educational handout. HTN stoplight reviewed with BP goal to be <140/90. Reviewed different factors that can alter blood pressure readings. Education handout provided with s/s to monitor for and report to provider. Patient is encouraged to increase portions of fruit, vegetables, fiber and increase exercise as much as tolerable. Reviewed importance with monitoring foods high in salt content and encouraged to limit intake, if unsure encouraged to discuss with their PCP. Encouraged to eat more chicken, fish and lean white meats and limits red meats in diet. Discussed importance with keeping BP under good control to reduce CVA risk factors. Will continue to f/u with PCP during office visits and as needed. 5. Frequent urination (R35.0: Frequency of micturition) Patient does report frequent urinati (more content not included)... Normal [facility] Comment on above: Result Comment: Elec tronically Signed By: Leila Drummond\.br\Date and Time Signed: 12/13/23 12:57 EST\.br\Electronically Co-Signed By: Matt Cooper\.br\Date and Time Co-Signed: 12/13/23 09:41 EST Patient Educationon 12-13-19 Patient Education Caregiving Fall Prevention in the Home, Adult Falls can cause injuries and affect people of all ages. There are many simple things that you can do to make your home safe and to help prevent falls. Ask for help when making these changes, if needed. What actions can I take to prevent falls? General instructions ? Use good lighting in all rooms. Replace any light bulbs that burn out, turn on lights if it is dark, and use night-lights. ? Place frequently used items in nvvj-ic-ynzpa places. Lower the shelves around your home if necessary. ? Set up furniture so that there are clear paths around it. Avoid moving your furniture around. ? Remove throw rugs and other tripping hazards from the floor. ? Avoid walking on wet floors. ? Fix any uneven floor surfaces. ? Add color or contrast paint or tape to grab bars and handrails in your home. Place contrasting color strips on the first and last steps of staircases. ? When you use a stepladder, make sure that it is completely opened and that the sides and supports are firmly locked. Have someone hold the ladder while you are using it. Do not climb a closed stepladder. ? Know where your pets are when moving through your home. What can I do in the bathroom? ? Keep the floor dry. Immediately clean up any water that is on the floor. ? Remove soap buildup in the tub or shower regularly. ? Use nonskid mats or decals on the floor of the tub or shower. ? Attach bath mats securely with double-sided, nonslip rug tape. ? If you need to sit down while you are in the shower, use a plastic, nonslip stool. ? Install grab bars by the toilet and in the tub and shower. Do not use towel bars as grab bars. What can I do in the bedroom? ? Make sure that a bedside light is easy to reach. ? Do not use oversized bedding that reaches the floor. ? Have a firm chair that has side arms to use for getting dressed. What can I do in the kitchen? ? Clean up any spills right away. ? If you need to reach for something above you, use a sturdy step stool that has a grab bar. ? Keep electrical cables out of the way. ? Do not use floor wallisian or wax that makes floors slippery. If you must use wax, make sure that it is non-skid floor wax. What can I do with my stairs? ? Do not leave any items on the stairs. ? Make sure that you have a light switch at the top and the bottom of the stairs. Have them installed if you do not have them. ? Make sure that there are handrails on both sides of the stairs. Fix handrails that are broken or loose. Make sure that handrails are as long as the staircases. ? Install non-slip stair treads on all stairs in your home. ? Avoid having throw rugs at the top or bottom of stairs, or secure the rugs with carpet tape to prevent them from moving. ? Choose a carpet design that does not hide the edge of steps on the stairs. ? Check any carpeting to make sure that it is firmly attached to the stairs. Fix any carpet that is loose or worn. What can I do on the outside of my home? ? Use bright outdoor lighting. ? Regularly repair the edges of walkways and driveways and fix any cracks. ? Remove high doorway thresholds. ? Trim any shrubbery on the main path into your home. ? Regularly check that handrails are securely fastened and in good repair. Both sides of all steps should have handrails. ? Install guardrails along the edges of any raised decks or porches. ? Clear walkways of debris and clutter, including tools and rocks. ? Have leaves, snow, and ice cleared regularly. ? Use sand or salt on walkways during winter months. ? In the garage, clean up any spills right away, including grease or oil spills. What other actions can I take? ? Wear closed-toe shoes that fit well and support your feet. Wear shoes that have rubber soles or low heels. ? Use mobility aids as needed, such as canes, walkers, scooters, and crutches. ? Review your medicines with your health care provider. Some medicines can cause dizziness or changes in blood pressure, which increase your risk of falling. Talk with your health care provider about other ways that you can decrease your risk of falls. This may include working with a physical therapist or guide dog trainer to improve your strength, balance, and endurance. Where to find more information ? Centers for Disease Control and Prevention, [place]: www.cdc.gov ? [place] on Aging: www.tejas.nih.gov Contact a health care provider if: ? You are afraid of falling at home. ? You feel weak, drowsy, or dizzy at home. ? You fall at home. Summary ? There are many simple things that you can do to make your home safe and to help prevent falls. ? Ways to make your home safe include removing tripping hazards and installing grab bars in the bathroom. ? Ask for help when making these changes in your home. This information is not intended to replace advice given to you by your health ca (more content not included)... Normal [facility] Screenson 12-13-2023 Screens [id number] #1.00TIFF Normal 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 runs high BP every time in office so she has been monitoring at home and brought a record of readings with her. History of Present Illness Jess Silva is a 68-year-old female who presents today to establish care. The patient has been monitoring her blood pressure at home. She recorded a normal reading of 117/68 mmHg, but it elevated to 185/88 mmHg that morning. She typically checks her blood pressure during periods of anxiety or concern for the children, attributing some of the elevated readings to stress. She is trying to manage stress by doing some positive activities like volunteering with preschoolers. She is not sure when she should be concerned about hypertension. Today, 12/04/2023, her blood pressure was mildly elevated because she was anxious. She experiences mild anxiety, but it is not severe enough to require treatment. She maintains a regular exercise routine, working out for 40 minutes each morning except on Sundays. She has been suffering from a chronic cold for the whole school year. She underwent a colonoscopy procedure in 2019, performed by Dr. Cardenas. She had urethral stenosis and has undergone multiple dilation procedures. She was referred to Dr Krishna, who diagnosed her with vaginal prolapse. She then consulted Dr. Collins, who performed a rectocele repair in 07/2022. She was scheduled for a follow-up appointment with Dr. Collins in 09/2023, but he left. She would like a referral to a litharge mill operator. She used to donate blood regularly but has discontinued due to anxiety-related issues. She has never been informed that she has PVCs occasionally. She has been administered the RSV vaccine, influenza vaccine and recently received the latest COVID-19 booster. Review of Systems PHQ Score Initial Depression Screen Score: 0 SCORE Physical Exam Vitals & Measurements T: 36.7 ?C(Oral) HR: 72(Peripheral) RR: 16 BP: 148/84 SpO2: 97% HT: 62 in HT: 157.4 cm WT: 72.0 kg WT: 158.4 lb BMI: 29.06 General: alert, no acute distress Cardiovascular: regular rate and rhythm, normal peripheral perfusion Respiratory: Lungs CTA, respirations non labored Extremities: no deformity, no trauma Neurological: oriented x 4, LOC appropriate for age, CN II-XII intact, motor strength equal & normal bilaterally, speech normal Abdomen: soft, nontender, nondistended.Reviewe d patient's past medical history. Reviewed past surgical history. Reviewed medications and reviewed blood pressure logs. We will continue to monitor the patient's blood pressure. Assessment/Plan 1. Encounter to establish care (Z76.89: Persons encountering health services in other specified circumstances) Reviewed patient's past medical history. Reviewed past surgical history. Reviewed medications and reviewed blood pressure logs. We will continue to monitor the patient's blood pressure. 2. White coat syndrome with high blood pressure but without hypertension (R03.0: Elevated blood-pressure reading, without diagnosis of hypertension) Every time I go in and see the patient, her blood pressure increases. When I took the patient's blood pressure, it was 180/100 mmHg. When the nurse rechecked, it was 148/80 mmHg, so we will continue to monitor. The patient is going to start taking her blood pressure every day to see if she gets more comfortable with that. From there, we will see if the patient needs to go on medication or not. Discussed risk and benefit of taking blood pressure medications. 3. BMI 29.0-29.9,adult (Z68.29: Body mass index [BMI] 29.0-29.9, adult) BMI education given. 4. Over weight (E66.3: Overweight) Diet and exercise advised. 5. Former smoker (Z87.891: Personal history of nicotine dependence) Encouraged the patient to continue not smoking. 6. Screening for malignant neoplasm of colon (Z12.11: Encounter for screening for malignant neoplasm of colon) The patient already had a colonoscopy in 2020, which was within normal limits. 7. Vaginal prolapse (N81.10: Cystocele, unspecified) Patient would like a referral to [facility] for a check after surgery as she did not have one. We will send her to Dr. Raya in [place]. Follow up in 2 months and patient will also do a Medicare wellness. Portions of this record may have been created with voice recognition artificial intelligence software, specifically [employer], [employer] and or [employer]. Substitutions may have occurred due to the inherent limitations o (more content not included)... Normal [facility] Comment on above: Result Comment: Elec tronically Signed By: Ian Maurer MD\.br\Date and Time Signed: 12/11/23 12:27 EST\.br\Electronically Co-Signed By: Lexie Hicks\.br\Date and Time Co-Signed: 12/04/23 13:18 EST Physician Referralon 024 Physician Referral [id number] 8#1.00TIFF Normal [facility] Ambulatory Visit Summaryon 0 12-04-2023 Ambulatory Visit Summary JESS SILVA :1955 Visit Date:12/04/2023 Ambulatory Visit Instructions Your Diagnosis Encounter to establish care White coat syndrome with high blood pressure but without hypertension BMI 29.0-29.9,adult Over weight Former smoker Screening for malignant neoplasm of colon Vaginal prolapse Your Care Team Attending Physician - Ian Maurer MD Primary Care Physician - Ian Maurer MD. This Is Your Medications List cranberry (Azo cranberry) lactobacillus acidophilus (Acidophilus Probiotic Blend) multivitamin with minerals (Multivitamin, Therapeutic w/ Minerals) Procedures Performed Cystourethroscopy with dilation of urethral stricture (10/01/2018), Colonoscopy (10/30/2009), Appendectomy (10/30/2005), Bilateral tubal ligation (10/30/1993), Cystoscopy, Surgery, Tonsillectomy. Discharge Vitals Temperature (Oral) 36.7 ?C Heart Rate (Peripheral) 72 Respiratory Rate 16 Blood Pressure 160/82 Height 157.4 cm Height 62 in Weight 72.0 kg Weight 158.4 lb BMI 29.06 What to do next Scheduled Follow-Up Appointments Monday 8:00 AM EST With: Where: [facility] [place] Invalid Interpretation Code [address] [place] [address]- \.br\ Someone Will Contact You Regarding These Appointments\.br\ [facility] External Ambulatory Referral, [facility]ER, Dr. Raya, 12/04/23 10:12:00 EST, Encounter to establish care [facility] Medicine Office/Clini c Noteon 12-04-2023 Family Medicine Office/Clinic Note HPI Staff Jess is 68 year old female presenting to establish care Establish Care: History: rectocele, urethral stenosis Any previous diagnosis: osteopenia History of seeing any specialist: When was your last doctors visit: dec 07, 2022 Last provider: Dr Fermin Any recent labs: 12/09/22 Health Maintenance UTD: Colonoscopy: 2019 normal Mammogram: 05/2023 Pelvic/Pap: 12/07/22 normal Dexa: 2019 and is Due 2023 flu: UTD 07/19/23 Acute: Current issues/complaints: 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 runs high BP every time in office so she has been monitoring at home and brought a record of readings with her. Review of Systems PHQ Score Initial Depression Screen Score: 0 SCORE Physical Exam Vitals & Measurements T: 36.7 ?C(Oral) HR: 72(Peripheral) RR: 16 BP: 160/82 SpO2: 97% HT: 62 in HT: 157.4 cm WT: 72.0 kg WT: 158.4 lb BMI: 29.06 General: alert, no acute distress ENMT: oral mucosa moist, Cardiovascular: regular rate and rhythm, normal peripheral perfusion Respiratory: Lungs CTA, respirations non labored Extremities: no deformity, no trauma Neurological: oriented x 4, LOC appropriate for age, CN II-XII intact, motor strength equal & normal bilaterally, speech normal Abdomen: Soft, Nontender, Non-distended, + BS Assessment/Plan 1. Encounter to establish care (Z76.89: Persons encountering health services in other specified circumstances) Ordered: Body Mass Index (BMI) documented 3008F Current tobacco non-user 1036F Depression Screening Negative 3352F [facility] External Ambulatory Referral Influenza immunization administered or previously received 4274F Most recent diastolic blood pressure 80-89 mm Hg 3079F Most recent systolic blood pressure >= 140 mm Hg 3077F Patient screen for fall risk: no falls in last year or 1 fall with no injury in last year 1101F 2. White coat syndrome with high blood pressure but without hypertension (R03.0: Elevated blood-pressure reading, without diagnosis of hypertension) Ordered: Body Mass Index (BMI) documented 3008F Current tobacco non-user 1036F Depression Screening Negative 3352F [facility] External Ambulatory Referral Influenza immunization administered or previously received 4274F Most recent diastolic blood pressure 80-89 mm Hg 3079F Most recent systolic blood pressure >= 140 mm Hg 3077F Patient screen for fall risk: no falls in last year or 1 fall with no injury in last year 1101F 3. BMI 29.0-29.9,adult (Z68.29: Body mass index [BMI] 29.0-29.9, adult) Ordered: Body Mass Index (BMI) documented 3008F Current tobacco non-user 1036F Depression Screening Negative 3352F [facility] External Ambulatory Referral Influenza immunization administered or previously received 4274F Most recent diastolic blood pressure 80-89 mm Hg 3079F Most recent systolic blood pressure >= 140 mm Hg 3077F Patient screen for fall risk: no falls in last year or 1 fall with no injury in last year 1101F 4. Over weight (E66.3: Overweight) Ordered: Body Mass Index (BMI) documented 3008F Current tobacco non-user 1036F Depression Screening Negative 3352F [facility] External Ambulatory Referral Influenza immunization administered or previously received 4274F Most recent diastolic blood pressure 80-89 mm Hg 3079F Most recent systolic blood pressure >= 140 mm Hg 3077F Patient screen for fall risk: no falls in last year or 1 fall with no injury in last year 1101F 5. Former smoker (Z87.891: Personal history of nicotine dependence) Ordered: Body Mass Index (BMI) documented 3008F Current tobacco non-user 1036F Depression Screening Negative 3352F [facility] External Ambulatory Referral Influenza immunization administered or previously received 4274F Most recent diastolic blood pressure 80-89 mm Hg 3079F Most recent systolic blood pressure >= 140 mm Hg 3077F Patient screen for fall risk: no falls in last year or 1 fall with no injury in last year 1101F 6. Screening for malignant neoplasm of colon (Z12.11: Encounter for screening for malignant neoplasm of colon) Ordered: Body Mass Index (BMI) documented 3008F Current tobacco non-user 1036F Depression Screening Negative 3352F Influenza immunization administered or previously received 4274F Most recent diastolic blood pressure 80-89 mm Hg 3079F Most recent systolic blood pressure >= 140 mm Hg 3077F Patient screen for fall risk: no falls in last year or 1 fall with no injury in last year 1101F 7. Vaginal prolapse (N81.10: Cystocele, unspecified) Follow-up No qualifying data available Patient Education BMI for Adults Problem List/Past Medical History Ongoing Cystocele with prolapse Encounter to establish care Female bladder prolapse Former smoker Frequent urination Hesitancy Incomplete bladder emptying Microscopic hematuria Nocturia Screening for malignant neoplasm of colon Unspecified urethral stricture, female Vaginal prolapse White coat sy (more content not included)... Normal [facility] Comment on above: Result Comment: Elec tronically Signed By: Erasto STEIN, Ian Hernandez\.br\Date and Time Signed: 12/04/23 10:14 EST Other Comment: Cyndi d note before finishing it. Formson 12-04-2023 Forms [id number] #1.00TIFF [facility] Patient Educationon 12-04-19 Patient Education Nutrition BMI for Adults What is BMI? Body mass index (BMI) is a number that is calculated from a person's weight and height. BMI can help estimate how much of a person's weight is composed of fat. BMI does not measure body fat directly. Rather, it is an alternative to procedures that directly measure body fat, which can be difficult and expensive. BMI can help identify people who may be at higher risk for certain medical problems. What are BMI measurements used for? BMI is used as a screening tool to identify possible weight problems. It helps determine whether a person is obese, overweight, a healthy weight, or underweight. BMI is useful for: ? Identifying a weight problem that may be related to a medical condition or may increase the risk for medical problems. ? Promoting changes, such as changes in diet and exercise, to help reach a healthy weight. BMI screening can be repeated to see if these changes are working. How is BMI calculated? BMI involves measuring your weight in relation to your height. Both height and weight are measured, and the BMI is calculated from those numbers. This can be done either in [place] ([place] or metric measurements. Note that charts and online BMI calculators are available to help you find your BMI quickly and easily without having to do these calculations yourself. To calculate your BMI in [place] measurements: 1. Measure your weight in pounds (lb). 2. Multiply the number of pounds by 703. ? For example, for a person who weighs 180 lb, multiply that number by 703, which equals 126,540. 3. Measure your height in inches. Then multiply that number by itself to get a measurement called inches squared. ? For example, for a person who is 70 inches tall, the inches squared measurement is 70 inches x 70 inches, which equals 4,900 inches squared. 4. Divide the total from step 2 (number of lb x 703) by the total from step 3 (inches squared): 126,540 ? 4,900 = 25.8. This is your BMI. To calculate your BMI in metric measurements: 1. Measure your weight in kilograms (kg). 2. Measure your height in meters (m). Then multiply that number by itself to get a measurement called meters squared. ? For example, for a person who is 1.75 m tall, the meters squared measurement is 1.75 m x 1.75 m, which is equal to 3.1 meters squared. 3. Divide the number of kilograms (your weight) by the meters squared number. In this example: 70 ? 3.1 = 22.6. This is your BMI. What do the results mean? BMI charts are used to identify whether you are underweight, normal weight, overweight, or obese. The following guidelines will be used: ? Underweight: BMI less than 18.5. ? Normal weight: BMI between 18.5 and 24.9. ? Overweight: BMI between 25 and 29.9. ? Obese: BMI of 30 or above. Keep these notes in mind: ? Weight includes both fat and muscle, so someone with a muscular build, such as an athlete, may have a BMI that is higher than 24.9. In cases like these, BMI is not an accurate measure of body fat. ? To determine if excess body fat is the cause of a BMI of 25 or higher, further assessments may need to be done by a health care provider. ? BMI is usually interpreted in the same way for men and women. Where to find more information For more information about BMI, including tools to quickly calculate your BMI, go to these websites: ? Centers for Disease Control and Prevention: www.cdc.gov ? [place] Heart Association: www.heart.org ? National Heart, Lung, and Blood [place]: www.nhlbi.nih.gov Summary ? Body mass index (BMI) is a number that is calculated from a person's weight and height. ? BMI may help estimate how much of a person's weight is composed of fat. BMI can help identify those who may be at higher risk for certain medical problems. ? BMI can be measured using [place] measurements or metric measurements. ? BMI charts are used to identify whether you are underweight, normal weight, overweight, or obese. This information is not intended to replace advice given to you by your health care provider. Make sure you discuss any questions you have with your health care provider. Document Revised: 07/08/2020 Document Reviewed: 05/15/2020 [employer] Patient Education ? 2022 CNS Response. [facility] Patient Logson 12-04-2023 Patient Logs [id number] #1.00TIFF [facility] Outside Mammographyon 2022 Outside Mammography [id number] #1.00CD:127 [facility] PAP ACOG PANEL 2: 30 to 65on 12-13-2022 . . Normal [facility] Comment on above: Performed By: #### [id number] #### [facility] [address] [place] [address] Dr. Vanesa oCrnejo Age Gdln ACOG Testing Comment [facility] Comment on above: Result Comment: <21 or >65 or no age provided Performed By: #### 4 [id number] #### [facility] [address] [place] [address] Dr. Vanesa Cornejo DIAGNOSIS: Comment [facility] Comment on above: Result Comment: NEGA TIVE FOR INTRAEPITHELIAL LESION OR MALIGNANCY. CELLULAR CHANGES ASSOCIATED WITH ATROPHY ARE PRESENT. Performed By: #### [id number] #### [facility] [address] [place] [address] Dr. Vanesa Cornejo Methodology: Comment [facility] Comment on above: Result Comment: This liquid based ThinPrep(R) pap test was screened with the use of an image guided system. Performed By: #### [id number] #### [facility] [address] [place] [address] Dr. Vanesa Cornejo Note: Comment Normal [facility] Comment on above: Result Comment: The Pap smear is a screening test designed to aid in the detection of premalignant and malignant conditions of the uterine cervix. It is not a diagnostic procedure and should not be used as the sole means of detecting cervical cancer. Both false-positive and false-negative reports do occur. . Performed By: #### [id number] #### [facility] [address] [place] [address] Dr. Vanesa Cornejo Performed by: Comment Normal [facility] Comment on above: Result Comment: Delbert Linn, Senior [employer] Soa Developer (ASCP) Performed By: #### [id number] #### [facility] [address] [place] [address] Dr. Vanesa Cornejo Specimen adequacy: Comment Normal [facility] Comment on above: Result Comment: Sati sfactory for evaluation. Endocervical component may not be distinguished in cases of atrophy. Performed By: #### 4 [id number] #### [facility] [address] [place] [address] Dr. Vanesa Cornejo CBC AUTO DIFFon 12-09-2022 BASO # 0.0 103/ul Normal 0.0-0.1 [facility] Comment on above: Performed By: #### C BC #### [facility] [address] [place] [address] Dr. Vanesa oCrnejo Basophils/100 WBC (Bld) 0.4 % Normal 0.2-2.0 [facility] Comment on above: Performed By: #### C BC #### [facility] [address] [place] [address] Dr. Vanesa Cornejo EO # 0.1 103/ul Normal 0.0-0.7 [facility] Comment on above: Performed By: #### C BC #### [facility] [address] [place] [address] Dr. Vanesa Cornejo Eosinophils/100 WBC (Bld) 2.1 % Normal 0.9-7.0 [facility] Comment on above: Performed By: #### C BC #### [facility] [address] [place] [address] Dr. Vanesa Cornejo Erythrocyte distribution width (RBC) [Ratio] 13.1 % Normal 11.0-15.0 [facility] Comment on above: Performed By: #### C BC #### [facility] [address] [place] [address] Dr. Vanesa Cornejo Hematocrit (Bld) [Volume fraction] 39.1 % Normal 36.0-48.0 [facility] Comment on above: Performed By: #### C BC #### [facility] [address] [place] [address] Dr. Vanesa Cornejo Hemoglobin (Bld) [Mass/Vol] 13.3 g/dL Normal 12.0-16.0 [facility] Comment on above: Performed By: #### C BC #### [facility] [address] [place] [address] Dr. Vanesa Cornejo IG # 0.01 10e3/ul Normal 0.00-0.03 [facility] Comment on above: Performed By: #### C BC #### [facility] [address] [place] [address] Dr. Vanesa Cornejo IG % 0.2 % Normal 0.0-0.5 [facility] Comment on above: Performed By: #### C BC #### [facility] [address] [place] [address] Dr. Vanesa Cornejo LYMPH # 1.1 103/ul Critically low 1.2-3.8 [facility] Comment on above: Performed By: #### C BC #### [facility] [address] [place] [address] Dr. Vanesa Cornejo Lymphocytes/100 WBC (Bld) 22.0 % Normal 20.5-60.0 [facility] Comment on above: Performed By: #### C BC #### [facility] [address] [place] [address] Dr. Vanesa Cornejo MANUAL DIFF REQ NO Normal [facility] Comment on above: Performed By: #### C BC #### [facility] [address] [place] [address] Dr. Vanesa Cornejo MCH (RBC) [Entitic mass] 31.4 pg Normal 26.7-34.0 [facility] Comment on above: Performed By: #### C BC #### [facility] [address] [place] [address] Dr. Vanesa Cornejo MCHC (RBC) [Mass/Vol] 34.0 g/dL Normal 29.9-35.2 [facility] Comment on above: Performed By: #### C BC #### [facility] [address] [place] [address] Dr. Vanesa Cornejo MCV (RBC) [Entitic vol] 92.4 fL Normal 81.0-99.0 [facility] Comment on above: Performed By: #### C BC #### [facility] [address] [place] [address] Dr. Vanesa Cornejo MONO # 0.3 103/ul Normal 0.3-0.8 [facility] Comment on above: Performed By: #### C BC #### [facility] [address] [place] [address] Dr. Vanesa Cornejo Monocytes/100 WBC (Bld) 6.9 % Normal 1.7-12.0 [facility] Comment on above: Performed By: #### C BC #### [facility] [address] [place] [address] Dr. Vanesa Cornejo NEUT # 3.3 103/ul Normal 1.4-6.5 [facility] Comment on above: Performed By: #### C BC #### [facility] [address] [place] [address] Dr. Vanesa Cornejo Neutrophils/100 WBC (Bld) 68.4 % Normal 43.0-75.0 [facility] Comment on above: Performed By: #### C BC #### [facility] [address] [place] [address] Dr. Vanesa Cornejo Platelet mean volume (Bld) [Entitic vol] 8.7 fL Critically low 9.5-13.5 [facility] Comment on above: Performed By: #### C BC #### [facility] [address] [address] [address] Vanesa Cornejo PLT 286 103/ul Normal 150-450 [facility] Comment on above: Performed By: #### C BC #### [facility] [address] [address] [address] Vanesa Cornejo RBC 4.23 106/ul Normal 4.20-5.40 [facility] Comment on above: Performed By: #### C BC #### [facility] [address] [address] [address] Vanesa Cornejo WBC 4.8 103/ul Normal 4.0-11.0 [facility] Comment on above: Performed By: #### C BC #### [facility] [address] [place] [address] Dr. Vanesa Cornejo LIPID PROFILEon 12-09-2022 CHOL-HDL RATIO NORM SEE BELOW Normal [facility] Comment on above: Result Comment: 3.3 - 4.4 LOW RISK 4.4 - 7.1 AVERAGE RISK 7.1 - 11.0 MODERATE RISK >11.0 HIGH RISK Performed By: #### L IPID, CMP #### [facility] [address] [place] [address] Dr. Vanesa Cornejo Cholesterol [Mass/Vol] 216 mg/dL Critically high <=200 [facility] Comment on above: Performed By: #### L IPID, CMP #### [facility] [address] [place] [address] Dr. Vanesa Cornejo Cholesterol in HDL [Mass/Vol] 64 mg/dL Critically high 40-60 [facility] Comment on above: Performed By: #### L IPID, CMP #### [facility] [address] [address] [address] Vanesa Cornejo Cholesterol in LDL [Mass/Vol] 124.8 mg/dL Normal [facility] Comment on above: Performed By: #### L IPID, CMP #### [facility] [address] [place] [address] Dr. Vanesa Cornejo Cholesterol.total/ Cholesterol in HDL [Mass ratio] 3.4 {ratio} Normal [facility] Comment on above: Performed By: #### L IPID, CMP #### [facility] [address] [address] [address] Vanesa Cornejo HDL NORMAL > or = 60 mg/dl - LOW CARDIOVASCULAR RISK <40 mg/dl - HIGH CARDIOVASCULAR RISK Normal [facility] Comment on above: Performed By: #### L IPID, CMP #### [facility] [address] [address] [address] Vanesa Cornejo LDL CALC NORMAL SEE BELOW Normal [facility] Comment on above: Result Comment: <100 mg/dl OPTIMAL 100 - 129 mg/dl NEAR OR ABOVE OPTIMAL 130 - 159 mg/dl BORDERLINE HIGH 160 - 189 mg/dl HIGH >190 mg/dl VERY HIGH Performed By: #### L IPID, CMP #### [facility] [address] [address] [address] Vanesa Cornejo Triglyceride [Mass/Vol] 136 mg/dL Normal <=150 [facility] Comment on above: Performed By: #### L IPID, CMP #### [facility] [address] [address] [address] Vanesa Cornejo VLDL CALC 27.2 mg/dL Normal [facility] Comment on above: Performed By: #### L IPID, CMP #### [facility] [address] [address] [address] Vanesa Cornejo PROF 14(COMP METB)on 023 Albumin [Mass/Vol] 4.2 g/dL Normal 3.4-5.0 [facility] Comment on above: Performed By: #### L IPID, CMP #### [facility] [address] [address] [address] Vanesa Cornejo Albumin/Globulin [Mass ratio] 1.4 {ratio} Normal [facility] Comment on above: Performed By: #### L IPID, CMP #### [facility] [address] [address] [address] Vanesa Cornejo ALP [Catalytic activity/Vol] 64 U/L Normal 46-116 [facility] Comment on above: Performed By: #### L IPID, CMP #### [facility] [address] [address] [address] Vanesa Cornejo ALT [Catalytic activity/Vol] 31 U/L Normal 14-59 [facility] Comment on above: Performed By: #### L IPID, CMP #### [facility] [address] [address] [address] Vanesa Cornejo Anion gap [Moles/Vol] 11.7 mmol/L Normal [facility] Comment on above: Performed By: #### L IPID, CMP #### [facility] [address] [address] [address] Vanesa Cornejo AST [Catalytic activity/Vol] 28 U/L Normal 15-37 [facility] Comment on above: Performed By: #### L IPID, CMP #### [facility] [address] [address] [address] Vanesa Cornejo Bilirubin [Mass/Vol] 1.9 mg/dL Critically high 0.2-1.0 [facility] Comment on above: Performed By: #### L IPID, CMP #### [facility] [address] [address] [address] Vanesa Cornejo Calcium [Mass/Vol] 9.4 mg/dL Normal 8.5-10.1 [facility] Comment on above: Performed By: #### L IPID, CMP #### [facility] [address] [place] [address] Dr. Vanesa Cornejo Chloride [Moles/Vol] 103 mmol/L Normal 98-107 [facility] Comment on above: Performed By: #### L IPID, CMP #### [facility] [address] [address] [address] Vanesa Cornejo CO2 [Moles/Vol] 29.8 mmol/L Normal 21.0-32.0 [facility] Comment on above: Performed By: #### L IPID, CMP #### [facility] [address] [address] [address] Vanesa Cornejo Creatinine [Mass/Vol] 0.48 mg/dL Critically low 0.55-1.02 [facility] Comment on above: Performed By: #### L IPID, CMP #### [facility] [address] [address] [address] Vanesa Cornejo EGFR-AF ESTONIAN >60 Normal >=60 [facility] Comment on above: Performed By: #### L IPID, CMP #### [facility] [address] [address] [address] Vanesa Cornejo EGFR-NON AF ESTONIAN >60 Normal >=60 [facility] Comment on above: Performed By: #### L IPID, CMP #### [facility] [address] [address] [address] Vanesa Cornejo Globulin (S) [Mass/Vol] 2.9 g/dL Normal [facility] Comment on above: Performed By: #### L IPID, CMP #### [facility] [address] [address] [address] Vanesa Cornejo Glucose [Mass/Vol] 102 mg/dL Normal 74-106 [facility] Comment on above: Performed By: #### L IPID, CMP #### [facility] [address] [address] [address] Vanesa Cornejo Potassium [Moles/Vol] 4.5 mmol/L Normal 3.5-5.1 [facility] Comment on above: Performed By: #### L IPID, CMP #### [facility] [address] [address] [address] Vanesa Cornejo Protein [Mass/Vol] 7.1 g/dL Normal 6.4-8.2 [facility] Comment on above: Performed By: #### L IPID, CMP #### [facility] [address] [address] [address] Vanesa Cornejo Sodium [Moles/Vol] 140 mmol/L Normal 136-145 [facility] Comment on above: Performed By: #### L IPID, CMP #### [facility] [address] [address] [address] Vanesa Cornejo Urea nitrogen [Mass/Vol] 12.0 mg/dL Normal 7.0-18.0 [facility] Comment on above: Performed By: #### L IPID, CMP #### [facility] [address] [place] [address] Dr. Vanesa Cornejo Urea nitrogen/Creatinin e [Mass ratio] 25.0 mg/mg Normal [facility] Comment on above: Performed By: #### L IPID, CMP #### [facility] [address] [place] [address] Dr. Vanesa Cornejo BUNon 08-23-2022 Urea nitrogen [Mass/Vol] 6.0 mg/dL Critically low 7.0-18.0 [facility] Comment on above: Performed By: #### C ANTONIO, BUN #### [facility] [address] [place] [address] Dr. Vanesa Cornejo CBC AUTO DIFFon 08-23-2022 BASO # 0.0 103/ul Normal 0.0-0.1 [facility] Comment on above: Performed By: #### C BC #### [facility] [address] [place] [address] Dr. Vanesa Cornejo Basophils/100 WBC (Bld) 0.2 % Normal 0.2-2.0 [facility] Comment on above: Performed By: #### C BC #### [facility] [address] [place] [address] Dr. Vanesa Cornejo EO # 0.0 103/ul Normal 0.0-0.7 [facility] Comment on above: Performed By: #### C BC #### [facility] [address] [place] [address] Dr. Vanesa Cornejo Eosinophils/100 WBC (Bld) 0.2 % Critically low 0.9-7.0 [facility] Comment on above: Performed By: #### C BC #### [facility] [address] [place] [address] Dr. Vanesa Cornejo Erythrocyte distribution width (RBC) [Ratio] 12.1 % Normal 11.0-15.0 [facility] Comment on above: Performed By: #### C BC #### [facility] [address] [place] [address] Dr. Vanesa Cornejo Hematocrit (Bld) [Volume fraction] 32.8 % Critically low 36.0-48.0 [facility] Comment on above: Performed By: #### C BC #### [facility] [address] [place] [address] Dr. Vanesa Cornejo Hemoglobin (Bld) [Mass/Vol] 10.9 g/dL Critically low 12.0-16.0 [facility] Comment on above: Performed By: #### C BC #### [facility] [address] [place] [address] Dr. Vanesa Cornejo IG # 0.03 10e3/ul Normal 0.00-0.03 [facility] Comment on above: Performed By: #### C BC #### [facility] [address] [place] [address] Dr. Vanesa Cornejo IG % 0.3 % Normal 0.0-0.5 [facility] Comment on above: Performed By: #### C BC #### [facility] [address] [place] [address] Dr. Vanesa Cornejo LYMPH # 1.0 103/ul Critically low 1.2-3.8 [facility] Comment on above: Performed By: #### C BC #### [facility] [address] [place] [address] Dr. Vanesa Cornejo Lymphocytes/100 WBC (Bld) 10.9 % Critically low 20.5-60.0 [facility] Comment on above: Performed By: #### C BC #### [facility] [address] [place] [address] Dr. Vanesa Cornejo MANUAL DIFF REQ NO Normal [facility] Comment on above: Performed By: #### C BC #### [facility] [address] [place] [address] Dr. Vanesa Cornejo MCH (RBC) [Entitic mass] 31.5 pg Normal 26.7-34.0 [facility] Comment on above: Performed By: #### C BC #### [facility] [address] [place] [address] Dr. Vanesa Cornejo MCHC (RBC) [Mass/Vol] 33.2 g/dL Normal 29.9-35.2 [facility] Comment on above: Performed By: #### C BC #### [facility] [address] [address] [address] Vanesa Cornejo MCV (RBC) [Entitic vol] 94.8 fL Normal 81.0-99.0 [facility] Comment on above: Performed By: #### C BC #### [facility] [address] [address] [address] Vanesa Cornejo MONO # 0.6 103/ul Normal 0.3-0.8 [facility] Comment on above: Performed By: #### C BC #### [facility] [address] [place] [address] Dr. Vanesa Cornejo Monocytes/100 WBC (Bld) 6.6 % Normal 1.7-12.0 [facility] Comment on above: Performed By: #### C BC #### [facility] [address] [place] [address] Dr. Vanesa Cornejo NEUT # 7.7 103/ul Critically high 1.4-6.5 [facility] Comment on above: Performed By: #### C BC #### [facility] [address] [place] [address] Dr. Vanesa Cornejo Neutrophils/100 WBC (Bld) 81.8 % Critically high 43.0-75.0 [facility] Comment on above: Performed By: #### C BC #### [facility] [address] [place] [address] Dr. Vanesa Cornejo Platelet mean volume (Bld) [Entitic vol] 8.9 fL Critically low 9.5-13.5 [facility] Comment on above: Performed By: #### C BC #### [facility] [address] [place] [address] Dr. Vanesa Cornejo PLT 240 103/ul Normal 150-450 [facility] Comment on above: Performed By: #### C BC #### [facility] [address] [place] [address] Dr. Vanesa Cornejo RBC 3.46 106/ul Critically low 4.20-5.40 [facility] Comment on above: Performed By: #### C BC #### [facility] [address] [address] [address] Vanesa Cornejo WBC 9.4 103/ul Normal 4.0-11.0 [facility] Comment on above: Performed By: #### C BC #### [facility] [address] [address] [address] Vanesa Cornejo CREATININEon 08-23-2022 Creatinine [Mass/Vol] 0.51 mg/dL Critically low 0.55-1.02 [facility] Comment on above: Performed By: #### C ANTONIO, BUN #### [facility] [address] [place] [address] Dr. Vanesa Cornejo EGFR-AF ESTONIAN >60 Normal >=60 [facility] Comment on above: Performed By: #### C ANTONIO, BUN #### [facility] [address] [place] [address] Dr. Vanesa Cornejo EGFR-NON AF ESTONIAN >60 Normal >=60 [facility] Comment on above: Performed By: #### C ANTONIO, BUN #### [facility] [address] [place] [address] Dr. Vanesa Cornejo CULTURE URINEon 06-10-2022 CULTURE URINE Culture Observations: No growth Normal [facility] Comment on above: Performed By: #### U RCX #### [facility] [address] [place] [address] Dr. Vanesa Cornejo UA (CLEAN/CATCH) MICROSCOPIC IF INDICATEon 06-10-2022 Bilirubin Ql (U) Negative Normal NEGATIVE [facility] Comment on above: Performed By: #### U MICRO, UARMICR #### [facility] [address] [place] [address] Dr. Vanesa Cornejo Clarity (U) CLEAR Normal CLEAR [facility] Comment on above: Performed By: #### U MICRO, UARMICR #### [facility] [address] [place] [address] Dr. Vanesa Cornejo Color (U) YELLOW Normal YELLOW [facility] Comment on above: Performed By: #### U MICRO, UARMICR #### [facility] [address] [address] [address] Vanesa Cornejo Glucose Ql (U) Negative Normal NEGATIVE [facility] Comment on above: Performed By: #### U MICRO, UARMICR #### [facility] [address] [address] [address] Vanesa Cornejo Hemoglobin Ql (U) Negative Normal NEGATIVE [facility] Comment on above: Performed By: #### U MICRO, UARMICR #### [facility] [address] [address] [address] Vanesa Cornejo Ketones Ql (U) Negative Normal NEGATIVE [facility] Comment on above: Performed By: #### U MICRO, UARMICR #### [facility] [address] [place] [address] Dr. Vanesa Cornejo LEUKOCYTES SMALL Abnormal NEGATIVE [facility] Comment on above: Performed By: #### U MICRO, UARMICR #### [facility] [address] [address] [address] Vanesa Cornejo Nitrite Ql (U) Negative Normal NEGATIVE [facility] Comment on above: Performed By: #### U MICRO, UARMICR #### [facility] [address] [place] [address] Dr. Vanesa Cornejo pH (U) 6.0 [pH] Normal 5-9 [facility] Comment on above: Performed By: #### U MICRO, UARMICR #### [facility] [address] [address] [address] Vanesa Cornejo SPEC GRAVITY 1.020 Normal 1.005-<=1.025 [facility] Comment on above: Performed By: #### U MICRO, UARMICR #### [facility] [address] [place] [address] Dr. Vanesa Cornejo UA PROTEIN Negative Normal NEGATIVE/ TRACE [facility] Comment on above: Performed By: #### U MICRO, UARMICR #### [facility] [address] [place] [address] Dr. Vanesa Cornejo UR MICRO IND INDICATED Normal [facility] Comment on above: Performed By: #### U MICRO, UARMICR #### [facility] [address] [address] [address] Vanesa Cornejo Urobilinogen Qn (U) 0.2 {Daquan'U}/dL Normal 0.2 - 1.0 [facility] Comment on above: Performed By: #### U MICRO, UARMICR #### [facility] [address] [address] [address] Vanesa Cornejo URINE MICROSCOPIC ONLYon BACTERIA TRACE Abnormal NONE SEEN [facility] Comment on above: Performed By: #### U MICRO, UARMICR #### [facility] [address] [place] [address] Dr. Vanesa Cornejo Bacteria identified Cx Nom (U) CX ALREADY ORDERED Normal [facility] Comment on above: Performed By: #### U MICRO, UARMICR #### [facility] [address] [place] [address] Dr. Vanesa Cornejo CAST NONE SEEN Normal NONE SEEN [facility] Comment on above: Performed By: #### U MICRO, UARMICR #### [facility] [address] [place] [address] Dr. Vanesa Cornejo Crystals LM Nom (Urine sed) NONE SEEN Normal NONE SEEN [facility] Comment on above: Performed By: #### U MICRO, UARMICR #### [facility] [address] [place] [address] Dr. Vanesa Cornejo Epithelial cells LM Ql (Urine sed) RARE Normal NONE SEEN /RARE [facility] Comment on above: Performed By: #### U MICRO, UARMICR #### [facility] [address] [place] [address] Dr. Vanesa Cornejo MUCOUS TRACE Abnormal NONE SEEN [facility] Comment on above: Performed By: #### U MICRO, UARMICR #### [facility] [address] [place] [address] Dr. Vanesa Cornejo RBC 0-2 Normal 0-2 [facility] Comment on above: Performed By: #### U MICRO, UARMICR #### [facility] [address] [address] [address] Vanesa Cornejo WBC 2-5 Abnormal NONE SEEN [facility] Comment on above: Performed By: #### U MICRO, UARMICR #### [facility] [id number] Vanesa Cornejo MG MAMM SCREEN 3D GEOVANNI CADon 05-18-2022 MG MAMM SCREEN 3D GEOVANNI CAD Patient: JESS SILVA Exam Date: 05/18/2022 : 1955 Gender:F Ordering : DR MYKE FERMIN . Admission #: [id number] Family : Order #: [id number] CLICK HERE TO VIEW EXAM RADIOLOGY REPORT PROCEDURE: MAMMOGRAM SCREENING 3D BILATERAL CAD COMPARISON: MG MAMM SCREEN 3D GEOVANNI CAD, 05/17/2021. MG MAMM SCREEN GEOVANNI W CAD, 05/15/2020. INDICATIONS: Screening mammography Calculator Name NCI Breast Cancer Risk Assessment Tool 5 Year Breast Cancer Risk 1.90% Lifetime Breast Cancer Risk 6.40% Personal Breast Cancer No Personal Ovarian Cancer No Treatments None Family Cancers None LOCATION: [facility] BREAST COMPOSITION: Heterogeneously dense,which may obscure small masses. FINDINGS: DIAGNOSTIC CATEGORY 1--NEGATIVE. RIGHT BREAST: No significant suspicious finding. No significant change has occurred. LEFT BREAST: No significant suspicious finding. No significant change has occurred. RECOMMENDATIONS: ROUTINE MAMMOGRAM AND CLINICAL EVALUATION IN 12 MONTHS. PLEASE NOTE: A NORMAL MAMMOGRAM DOES NOT EXCLUDE THE POSSIBILITY OF BREAST CANCER. A CLINICALLY SUSPICIOUS PALPABLE LUMP SHOULD BE BIOPSIED. Dictated by: Charles Bolaños M.D. on 05/18/2022 at 15:00 Approved by: Charles Bolaños M.D. on 05/18/2022 at 15:02 Normal [facility] Encounters Encounter Date Encounter Type Care Provider Facility Start: 05-22-2024 End: 05-22-2024 ambulatory Ian Maurer Facility:[facility] Start: 05-14-2024 End: 05-14-2024 ambulatory Ian Maurer Facility:[facility] Start: 03-11-2024 End: 03-11-2024 ambulatory NICHELLE CARPENTER Not Available Start: 03-08-2024 End: 03-08-2024 ambulatory NICHELLE CARPENTER Not Available Start: 02-12-2024 End: 02-12-2024 ambulatory Ian Maurer Facility:[facility] Start: 12-13-2023 End: 12-13-2023 ambulatory Ian Maurer Facility:[facility] Start: 12-04-2023 End: 12-04-2023 ambulatory Ian Maurer Facility:[facility] Start: 06-05-2023 ambulatory Ian Maurer Facility:[facility] Start: 12-09-2022 End: 12-10-[address] MYKE FERMIN Facility:[facility] Start: 12-07-2022 End: 12-07-[address] MYKE FERMIN Facility:[facility] Start: 08-22-2022 End: 08-23-[address] JEAN COLLINS Facility:[facility] Start: 08-18-[address] JEAN COLLINS [facility] Start: 08-11-2022 Encounter for preprocedural cardiovascular examination DR JEAN COLLINS [facility] Start: 08-10-2022 End: 08-11-[address] JEAN COLLINS Facility:[facility] Start: 08-10-2022 End: 08-11-2022 Encounter for preprocedural cardiovascular examination DR JEAN COLLINS Facility:[facility] Start: 07-20-2022 End: 07-20-2022 Patient encounter procedure Jerrod KRISHNA [facility] Start: 06-22-2022 End: 06-22-2022 Patient encounter procedure CARLOS ALBERTO DUNN [facility] Start: 06-10-2022 End: 06-11-[address] MYKE FERMIN Facility:[facility] Start: 05-18-2022 End: 05-19-[address] MYKE FERMIN Facility:[facility] Procedures Date Procedure Procedure Detail Performing Clinician Start: 10-01-2018 Cystourethroscopy wi th dilation of urethral stricture CARLOS ALBERTO DUNN Start: 10-30-2009 Colonoscopy CARLOS ALBERTO JOHNSON Start: 10-30-2005 Appendectomy CARLOS ALBERTO JOHNSON Start: 10-30-1993 Bilateral tubal ligation CARLOS ALBERTO DUNN Cystoscopy CARLOS ALBERTO DUNN Comment on above: UD 10/01/18 Tonsillectomy CARLOS ALBERTO DUNN Plan of Treatment Date Care Activity Detail Author Start: 12-16-2024 ambulatory Ambulatory Facility:[facility] Start: 11-08-2024 ambulatory Ambulatory Facility:[facility] Immunizations Immunization Date Immunization Notes Care Provider Brynn mabry NEGATED: Highlighted row has not occurred!06-22-2022 SARS-CoV-2 mRNA (tozinameran 5y-11y) vaccine CARLOS ALBERTO DUNN [facility] Payers Date Payer Category Payer Private Health Insurance [id number] 1959 Medicare [id number] 1959 Private Health Insurance CLI [id number] 1955 Unknown [id number] 2.16.84 [id number] 1955 Unknown [id number] 2.16.84 [id number] 1955 Unknown [id number] 2.16.84 [id number] 1955 Unknown [id number] 2.16.84 0.1.975002.3.579.2.59 1955 Unknown [id number] 2.16.84 [id number] 1955 Unknown [id number] 2.16.84 0.1.517354.3.579.2.59 1955 Unknown [id number] 2.16.84 0.1.214575.3.579.2.593 1955 Unknown [id number] 2.16.84 0.1.282540.3.579.2.1259 1955 Unknown [id number] 2.16.84 0.1.267569.3.579.2.1259 1955 Unknown [id number] 2.16.8 40.1.787723.3.579.2.727 1955 Unknown [id number] 2.16.8 40.1.810032.3.579.2.727 1955 Unknown [id number] 2.16.8 40.1.046888.3.579.2.727 1955 Unknown [id number] 2.16.8 40.1.897295.3.579.2.727 1955 Unknown [id number] 2.16.8 40.1.017297.3.579.2.727 1955 Unknown [id number] 2.16.8 40.1.893813.3.579.2.727 1955 Unknown [id number] 2.16.8 [id number] Social History Date Type Detail Facility Start: 04-15-2020 Tobacco smoking status Ex-smoker (fi nding) [facility] Tobacco smoking status Never [facility] Sex Assigned At Female [facility] Functional Status Date Assessment Result Facility 07-19-2022 Functional Status N/A [facility] 06-22-2022 Functional Status N/A [facility] Clinical Note 05-14-2024 Note Date & Type Note Facility 05-14-2024 Note Patient Education Cardiovascular Hypertension, Adult High blood pressure (hypertension) is when the force of blood pumping through the arteries is too strong. The arteries are the blood vessels that carry blood from the heart throughout the body. Hypertension forces the heart to work harder to pump blood and may cause arteries to become narrow or stiff. Untreated or uncontrolled hypertension can lead to a heart attack, heart failure, a stroke, kidney disease, and other problems. A blood pressure reading consists of a higher number over a lower number. Ideally, your blood pressure should be below 120/80. The first ( top ) number is called the systolic pressure. It is a measure of the pressure in your arteries as your heart beats. The second ( bottom ) number is called the diastolic pressure. It is a measure of the pressure in your arteries as the heart relaxes. What are the causes? The exact cause of this condition is not known. There are some conditions that result in high blood pressure. What increases the risk? Certain factors may make you more likely to develop high blood pressure. Some of these risk factors are under your control, including: ? Smoking. ? Not getting enough exercise or physical activity. ? Being overweight. ? Having too much fat, sugar, calories, or salt (sodium) in your diet. ? Drinking too much alcohol. Other risk factors include: ? Having a personal history of heart disease, diabetes, high cholesterol, or kidney disease. ? Stress. ? Having a family history of high blood pressure and high cholesterol. ? Having obstructive sleep apnea. ? Age. The risk increases with age. What are the signs or symptoms? High blood pressure may not cause symptoms. Very high blood pressure (hypertensive crisis) may cause: ? Headache. ? Fast or irregular heartbeats (palpitations). ? Shortness of breath. ? Nosebleed. ? Nausea and vomiting. ? Vision changes. ? Severe chest pain, dizziness, and seizures. How is this diagnosed? This condition is diagnosed by measuring your blood pressure while you are seated, with your arm resting on a flat surface, your legs uncrossed, and your feet flat on the floor. The cuff of the blood pressure monitor will be placed directly against the skin of your upper arm at the level of your heart. Blood pressure should be measured at least twice using the same arm. Certain conditions can cause a difference in blood pressure between your right and left arms. If you have a high blood pressure reading during one visit or you have normal blood pressure with other risk factors, you may be asked to: ? Return on a different day to have your blood pressure checked again. ? Monitor your blood pressure at home for 1 week or longer. If you are diagnosed with hypertension, you may have other blood or imaging tests to help your health care provider understand your overall risk for other conditions. How is this treated? This condition is treated by making healthy lifestyle changes, such as eating healthy foods, exercising more, and reducing your alcohol intake. You may be referred for counseling on a healthy diet and physical activity. Your health care provider may prescribe medicine if lifestyle changes are not enough to get your blood pressure under control and if: ? Your systolic blood pressure is above 130. ? Your diastolic blood pressure is above 80. Your personal target blood pressure may vary depending on your medical conditions, your age, and other factors. Follow these instructions at home: Eating and drinking ? Eat a diet that is high in fiber and potassium, and low in sodium, added sugar, and fat. An example of this eating plan is called the DASH diet. DASH stands for Dietary Approaches to Stop Hypertension. To eat this way: ? Eat plenty of fresh fruits and vegetables. Try to fill one half of your plate at each meal with fruits and vegetables. ? Eat whole grains, such as whole-wheat pasta, brown rice, or whole-grain bread. Fill about one fourth of your plate with whole grains. ? Eat or drink low-fat dairy products, such as skim milk or low-fat yogurt. ? Avoid fatty cuts of meat, processed or cured meats, and poultry with skin. Fill about one fourth of your plate with lean proteins, such as fish, chicken without skin, beans, eggs, or tofu. ? Avoid pre-made and processed foods. These tend to be higher in sodium, added sugar, and fat. ? Reduce your daily sodium intake. Many people with hypertension should eat less than 1,500 mg of sodium a day. ? Do not drink alcohol if: ? Your health care provider tells you not to drink. ? You are , may be , or are planning to become . ? If you drink alcohol: ? Limit how much you have to: ? 0?1 drink a day for women. ? 0?2 drinks a day for men. ? Know how much alcohol is in your drink. In the [place] one drink equals one 12 oz bottle of beer (355 mL), one 5 oz glass of wine (148 mL), (more content not included)... [facility] Hospital Discharge instructions 06-24-2022 Note Date & Type Note Facility 06-24-2022 Hospital Discharg e instructions Follow Up Care 06/24/2022 14:24:44 With:Jerrod KRISHNA Address: [address] [place] [phone] Business (1) When: Unknown With:Jerrod KRISHNA [facility] [place] [address] Business (1) When: Unknown [facility] Hospital Discharge instructions 06-22-2022 Note Date & Type Note Facility 06-22-2022 Hospital Discharg e instructions Patient Education 06/22/2022 14:12:11 Urethral Stricture Urethral Stricture Urethral stricture is narrowing of the tube (urethra) that carries urine from the bladder out of the body. The urethra can become narrow due to scar tissue from an injury or infection. This can make it difficult to pass urine. In women, the urethra opens above the vaginal opening. In men, the urethra opens at the tip of the penis, and the urethra is much longer than it is in women. Because of the length of the male urethra, urethral stricture is much more common in men. This condition is treated with surgery. What are the causes? In both men and women, common causes of urethral stricture include: Urinary tract infection (UTI). Sexually transmitted infection (STI). Use of a tube placed into the urethra to drain urine from the bladder (urinary catheter). Urinary tract surgery. In men, common causes of urethral stricture include: A severe injury to the pelvis. Prostate surgery. Injury to the penis. In many cases, the cause of urethral stricture is not known. What increases the risk? You are more likely to develop this condition if you: Are male. Men who have had prostate surgery are at risk of developing this condition. Use a urinary catheter. Have had urinary tract surgery. What are the signs or symptoms? The main symptom of this condition is difficulty passing urine. This may cause decreased urine flow, dribbling, or spraying of urine. Other symptom of this condition may include: Frequent UTIs. Blood in the urine. Pain when urinating. Swelling of the penis in men. Inability to pass urine (urinary obstruction). How is this diagnosed? This condition may be diagnosed based on: Your medical history and a physical exam. Urine tests to check for infection or bleeding. X-rays. Ultrasound. Retrograde urethrogram. This is a type of test in which dye is injected into the urethra and then an X-ray is taken. Urethroscopy. This is when a thin tube with a light and camera on the end (urethroscope) is used to look at the urethra. How is this treated? This condition is treated with surgery. The type of surgery that you have depends on the severity of your condition. You may have: Urethral dilation. In this procedure, the narrow part of the urethra is stretched open (dilated) with dilating instruments or a small balloon. Urethrotomy. In this procedure, a urethroscope is placed into the urethra, and the narrow part of the urethra is cut open with a surgical blade inserted through the urethroscope. Open surgery. In this procedure, an incision is made in the urethra, the narrow part is removed, and the urethra is reconstructed. Follow these instructions at home: Take [id number] and prescription medicines only as told by your health care provider. If you were prescribed an antibiotic medicine, take it as told by your health care provider. Do not stop taking the antibiotic even if you start to feel better. Drink enough fluid to keep your urine pale yellow. Keep all follow-up visits as told by your health care provider. This is important. Contact a health care provider if: You have signs of a urinary tract infection, such as: ?Frequent urination or passing small amounts of urine frequently. ?Needing to urinate urgently. ?Pain or burning with urination. ?Urine that smells bad or unusual. ?Cloudy urine. ?Pain in the lower abdomen or back. ?Trouble urinating. ?Blood in the urine. ?Vomiting or being less hungry than normal. ?Diarrhea or abdominal pain. ?Vaginal discharge, if you are female. Your symptoms are getting worse instead of better. Get help right away if: You cannot pass urine. You have a fever. You have swelling, bruising, or discoloration of your genital area. This includes the penis, scrotum, and inner thighs for men, and the outer genital organs (vulva) and inner thighs for women. You develop swelling in your legs. You have difficulty breathing. Summary Urethral stricture is narrowing of the tube (urethra) that carries urine from the bladder out of the body. The urethra can become narrow due to scar tissue from an injury or infection. This condition can make it difficult to pass urine. This condition is treated with surgery. The type of surgery that you have depends on the severity of your condition. Contact a health care provider if your symptoms get worse or you have signs of a urinary tract infection. This information is not intended to replace advice given to you by your health care provider. Make sure you discuss any questions you have with your health care provider. Document Released: 11/11/2016 Document Revised: 05/29/2019 Document Reviewed: 05/29/2019 [employer] Patient Education 2020 [employer]. Follow Up Care 06/21/2022 11:45:23 With:SHAUN ROMERO, CARLOS ALBERTO Young, URL Address: [address] [place] [address] When: Unknown [facility] Evaluation + Plan note Note Date & Type Note Facility Evaluation + Plan note No data available for this section [facility] Progress note Note Date & Type Note Facility Progress note No data available for this section [facility] Summary Purpose Family History No Family History Records FoundNo Family History Records FoundNo Family History Records Found Advance Directives No Advanced Directives Records FoundNo Advanced Directives Records FoundNo Advanced Directives Records Found Additional Source Comments Care Team (unrecognized sect ion and content) Personnel Name: MYKE FERMIN MD Address: [address] [place] [address] [place] INFORMATION SOURCE (unrecogn ized section and content) DATE CREATED AUTHOR [facility]20[facility] DATE CREATED AUTHOR AUTHOR'S ORGANIZ ATION 03/12/2024 [facility] EPIC DATE CREATED AUTHOR AUTHOR'S ORGANIZ ATION 05/24/2024 [facility] FOR RECORDS PERTAINING TO PATIENTS WHO ARE OR HAVE BEEN ENROLLED IN A CHEMICAL DEPENDENCY/SUBSTANCEABUSE PROGRAM, SOME INFORMATION MAY BE OMITTED. This clinical summary was aggregated from multiple sources. Caution should be exercised in using it in the provision of clinical care. This summary normalizes information from multiple sources, and as a consequence, information in this document may materially change the coding, format and clinical context of patient data. In addition, data may be omitted in some cases. CLINICAL DECISIONS SHOULD BE BASED ON THE PRIMARY CLINICAL RECORDS. [facility] [employer] [facility]. provides no warranty or guarantee of the accuracy or completeness of information in this document.
== END 2024-06-05 07:03 | disposition home or self-care (01) ==
LOC: MAMMO 07:02
PROVIDERS: PCP Family Medicine; Visit Provider Family Medicine
DX: Z12.31 Encounter for screening mammogram for malignant neoplasm of breast (principal)
CPT/HCPCS: 77063; 77067

== ENCOUNTER 2025-06-18 06:53 | Outpatient (OUT) | payer MEDICARE, SELFPAY ==
--- NOTE | 2025-06-18 06:55 | MM_ITS ---
Patient Name: JESS SILVA MR#: [id number] : 1955 Exam Date: 06/18/2025 Ordering Doctor: DR. HEYDI WALKER . RADIOLOGY REPORT PROCEDURE: MM TOMOSYNTHESIS SCREENING BI COMPARISON: MM TOMOSYNTHESIS SCREENING BI, 06/05/2024. MM TOMOSYNTHESIS SCREENING BI, 06/02/2023. MG MAMM SCREEN 3D GEOVANNI CAD, 05/18/2022. MG MAMM GEOVANNI SCRN W CAD DIG, 04/09/2013. INDICATIONS: screening for malignant neoplasm of breast Calculator Name NCI Breast Cancer Risk Assessment Tool 5 Year Breast Cancer Risk 1.90% Lifetime Breast Cancer Risk 5.60% Personal Breast Cancer No Personal Ovarian Cancer No Treatments None Family Cancers None LOCATION: [facility] BREAST COMPOSITION: There are scattered areas of fibroglandular density. FINDINGS: RIGHT BREAST: No significant suspicious finding. LEFT BREAST: No significant suspicious finding. DIAGNOSTIC CATEGORY 1--NEGATIVE. RECOMMENDATIONS: ROUTINE MAMMOGRAM AND CLINICAL EVALUATION IN 12 MONTHS. PLEASE NOTE: A NORMAL MAMMOGRAM DOES NOT EXCLUDE THE POSSIBILITY OF BREAST CANCER. A CLINICALLY SUSPICIOUS PALPABLE LUMP SHOULD BE BIOPSIED. Dictated by: Charlie Painting MD on 06/18/2025 at 09:42 Approved by: Charlie Painting MD on 06/18/2025 at 09:44
--- OUTSIDE RECORDS SUMMARY | 2025-06-18 06:56 | XMS_ITS | CCD ---
Author Organization [facility] Care Team Providers Care Bank Advisor Name Role Phone MYKE CORNELIUS Primary Care Physician DENNIS, DR PENA Admitting Unavailable KARASIK, DR PENA Consulting Unavailable KARASIK, DR PENA Attending Unavailable CORNELIUS, DR MYKE Young Primary Care Unavailable HAY PURCELL Consulting Unavailable JOSE ANGEL, HIRAM Consulting Unavailable KARASIK, DR PENA Admitting Unavailable KARASIK, DR PENA Consulting Unavailable KARASIK, DR PENA Attending Unavailable CORNELIUS, DR MYKE Young Primary Care Unavailable KARASIK, DR PENA Admitting Unavailable KARASIK, DR PENA Attending Unavailable CORNELIUS, DR MYKE Young Primary Care Unavailable CORNELIUS, DR MYKE Young Primary Care Unavailable CORNELIUS, DR MYKE Young Consulting Unavailable CORNELIUS, DR MYKE Young Attending Unavailable CORNELIUS, DR MYKE Young Admitting Unavailable CORNELIUS, DR MYKE Young Primary Care Unavailable CORNELIUS, DR MYKE Young Consulting Unavailable CORNELIUS, DR MYKE Young Attending Unavailable CORNELIUS, DR MYKE Young Admitting Unavailable ZIEBER, DR CHARLES Hernandez Consulting Unavailable CORNELIUS, DR MYKE Young Consulting Unavailable CORNELIUS, DR MYKE Young Attending Unavailable CORNELIUS, DR MYKE Young Admitting Unavailable CORNELIUS, DR MYKE Young Primary Care Unavailable CORNELIUS, DR MYKE Young Consulting Unavailable CORNELIUS, DR MYKE Young Attending Unavailable CORNELIUS, DR MYKE Young Admitting Unavailable CORNELIUS, DR MYKE Young Primary Care Unavailable NICHELLE CARPENTER Attending Unavailable NICHELLE CARPENTER Attending Unavailable Ian Maurer. Primary Care Physician MD Ian Maurer. Attending Unavailable Ian Maurer Attending Unavailable Ian Maurer. Attending Unavailable Leila Esparza Attending Unavailable Ian Maurer Attending Unavailable Ian Maurer Attending Unavailable Leila Esparza Admitting Unavailable Leila Esparza Attending Unavailable VilmaLeila Admitting Unavailable VilmaLeila Attending Unavailable Medications Current Medications Medication Drug Class(es) Dates Sig (Normalized) Sig (Original) Acidophilus Probiotic Blend (4 sources) Start: 04-15-2020 take 1 capsule by mouth once daily Acidophilus Probiotic Blend 1 cap(s), Oral, Daily, Refill(s) 0 Start Date: 04/15/20 Status: Ordered alendronic acid 70 mg oral tablet (2 sources) Bisphosphonate Start: 12-21-2023 Fosamax 70 mg Tab 70 mg = 1 tab(s), Oral, q7day, # 12 tab(s), Refills(s) 3, Pharm[place] [facility] [place] [id number], 160, cm, 12/13/23 8:40:00 EST, Height/Length Dosing, 70.9, kg, 12/13/23 8:40:00 EST, Weight Dosing Start Date: 12/21/23 Status: Ordered Cranberry preparation (4 sources) Non-Standardized Food Allergenic Extract, Non-Standardized Plant Allergenic Extract Start: 06-22-2022 take 2 tablets by mouth once daily Azo cranberry 2 tab(s), Oral, Daily, Refill(s) 0 Start Date: 06/22/22 Status: Ordered Start: 06-22-2022 Azo cranberry Refill(s) 0 Start Date: 06/22/22 Status: Ordered Magnesium (2 sources) Start: 11-08-2024 magnesium magn esium Start Date: 11/08/24 Status: Ordered Multivitamin, Therapeutic w/ Minerals (4 sources) Start: 04-15-2020 take 1 tablet by [...] Refill(s) 0 Start Date: 06/22/22 Status: Ordered Vitamin C 500 mg oral tablet, chewable (2 sources) Start: 11-08-2024 take 1 mg by mouth once daily Vitamin C 500 mg oral tablet, chewable mg tab(s), Chewed, Daily, Refills(s) 0 Start Date: 11/08/24 Status: Ordered Completed/Discontinued Medications Medication Drug Class(es) Dates Sig (Normalized) Sig (Original) cephalexin 500 mg oral capsule (2 sources) Cephalosporin Antibacterial Start: 06-22-2022 take 1 tablet by mouth every twelve hours Keflex 500 mg Cap 500 mg = 1 cap(s), Oral, Daily, Take 1 tablet day before procedure, and then 1 tablet 12 hrs later, # 2 cap(s), Refills(s) 0, Pharmacy: [facility] [id number] Start Date: 06/22/22 Status: Ordered Problems Active Problems Problem Classification Problem Date Documented Date Episodic/Chronic Disorders of lipid metabolism (1 source) Pure hypercholesterolemia, unspecified; Translations: [PURE HYPERCHOLESTEROLEMIA UNSPEC] Onset: 3 Chronic Genitourinary symptoms and ill-defined conditions (14 sources) Delay when starting to pass urine; Translations: [Incomplete emptying of bladder] Onset: 2 04-04-2019 Episodic Hypertension with complications and secondary hypertension (2 sources) 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 12-04-2023 Chronic Malaise and fatigue (4 sources) Other fatigue; Translations: [OTHER FATIGUE] Onset: 3 Episodic Other diseases of bladder and urethra (2 sources) Overactive bladder 02-12-2024 Chronic Other diseases of bladder and urethra (5 sources) Urethral stricture; Translations: [Unspecified urethral stricture, female] Onset: 2 Episodic Other screening for suspected conditions (not mental disorders or infectious disease) (8 sources) Encounter for screening for malignant neoplasm of cervix; Translations: [Encounter for screening mammogram for malignant neoplasm of breast] Onset: 2 Episodic Prolapse of female genital organs (13 sources) Uterovaginal prolapse; Translations: [Uterovaginal prolapse, unspecified] Onset: 2 Chronic Screening and history of mental health and substance abuse codes (5 sources) Ex-smoker; Translations: [Personal history of nicotine dependence] Onset: 2 07-30-2019 Episodic Unclassified (6 sources) Patient encounter status 04-15-2020 Unclassified (2 sources) Cancer cervix screening status 11-08-2024 Past or Other Problems Problem Classification Problem Date Documented Da te Episodic/Chronic Other diseases of bladder and urethra (1 source) Urethral caruncle; Translations: [URETHRAL CARUNCLE] Onset: 08-30-2022 Episodic Other gastrointestinal disorders (1 source) Constipation, unspecified; Translations: [CONSTIPATION UNSPECIFIED] Onset: 08-30-2022 Episodic Urinary tract infections (5 sources) Urinary tract infectious disease; Translations: [Urinary tract infection, site not specified] Onset: 06-10-2022 Episodic Results Test Name Value Interpretation Reference Range Facil ity Ambulatory Visit Summaryon 0 01-01-2025 Ambulatory Visit Summary Ambulatory Visit Summary JESS SILVA :1955 Visit Date:12/16/2024 Ambulatory Visit Instructions Your Diagnosis Encounter for Medicare annual examination with abnormal findings Breast cancer screening by mammogram Osteoporosis White coat syndrome with high blood pressure but without hypertension Overweight Tests Performed MA Mamm Screen w/CAD if perf and 3D Magdiel -- Results Pending -- Please visit your patient portal for your results or contact your primary care physician. Your Care Team Attending Physician - Ian Maurer MD. Primary Care Physician - Ian Maurer MD. This Is Your Medications List Non-Formulary Medication (magnesium) alendronate (alendronate 70 mg Tab) ascorbic acid (Vitamin C 500 mg oral tablet, chewable) cranberry (Azo cranberry) lactobacillus acidophilus (Acidophilus Probiotic Blend) multivitamin with minerals (Multivitamin, Therapeutic w/ Minerals) Procedures Performed Cystourethroscopy with dilation of urethral stricture (10/01/2018), Colonoscopy (10/30/2009), Appendectomy (10/30/2005), Bilateral tubal ligation (10/30/1993), Cystoscopy, Surgery, Tonsillectomy. Discharge Vitals Heart Rate (Peripheral) 78 Respiratory Rate 16 Blood Pressure 170/80 Height 63 in Height 160 cm Weight 156.748 lb Weight 71.1 kg BMI 27.77 What to do next Scheduled Follow-Up Appointments Monday2025 8:00 AM EST Where: [facility] [address] [address]- Medications What How Much When Instructions Unchanged alendronate (alendronate 70 mg Tab) See instructions TAKE 1 TABLET EVERY 7 DAYS Unchanged ascorbic acid (Vitamin C 500 mg oral tablet, chewable) Chewed Every day Unchanged cranberry (Azo cranberry) 2 Tablets By Mouth Every day Unchanged lactobacillus acidophilus (Acidophilus Probiotic Blend) 1 Capsules By Mouth Every day Unchanged multivitamin with minerals (Multivitamin, Therapeutic w/ Minerals) 1 Tablets By Mouth Every day Unchanged Non-Formulary Medication (magnesium) Medications and Immunizations Administered Given SARSCoV2 mRNA(tozinamer-valdez- sucros) vac, Allergies No Known Allergies Problems Ongoing - Any problem that you are currently receiving treatment for. BMI 27.0-27.9,adult Cervical cancer screening Cystocele with prolapse Former smoker Incomplete bladder emptying Osteoporosis Overactive bladder Screening for malignant neoplasm of colon Unspecified urethral stricture, female Well woman exam White coat syndrome with high blood pressure but without hypertension Patient Survey You may receive a survey via text or e-mail asking about your office visit. Please share your experience with us by completing your survey. We appreciate your feedback and thank you for choosing us for your care. Education Materials Health Maintenance After Age 65 After age 65, you are at a higher risk for certain long-term diseases and infections as well as injuries from falls. Falls are a major cause of broken bones and head injuries in people who are older than age 65. Getting regular preventive care can help to keep you healthy and well. Preventive care includes getting regular testing and making lifestyle changes as recommended by your health care provider. Talk with your health care provider about: ??? Which screenings and tests you should have. A screening is a test that checks for a disease when you have no symptoms. ??? A diet and exercise plan that is right for you. What should I know about screenings and tests to prevent falls? Screening and testing are the best ways to find a health problem early. Early diagnosis and treatment give you the best chance of managing medical conditions that are common after age 65. Certain conditions and lifestyle choices may make you more likely to have a fall. Your health care provider may recommend: ??? Regular vision checks. Poor vision and conditions such as cataracts can make you more likely to have a fall. If you wear glasses, make sure to get your prescription updated if your vision changes. ??? Medicine review. Work with your health care provider to regularly review all of the medicines you are taking, including cdqo-vzm-nxnalim medicines. Ask your health care provider about any side effects that may make you more likely to have a fall. Tell your health care provider if any medicines that you take make you feel dizzy or sleepy. ??? Strength and balance checks. Your health care provider may recommend certain tests to check your strength and balance while standing, walking, or changing positions. ??? Foot health exam. Foot pain and numbness, as well as not wearing proper footwear, can make you more likely to have a fall. ??? Screenings, including: ? Osteoporosis screening. Osteoporosis is a condition that causes the bones to get weaker and break more easily. ? (more content not included)... Normal [facility] Family Medicine Office/Clini c Noteon 01-01-2025 Family Medicine Office/Clinic Note Family Medicine Office/Clinic Note Chief Complaint Subsequent Medicare Wellness History of Present Illness Covid-19, MERS, Ebola Screen *Contact With Person With Highly Contagious Disease Like Ebola/MERS/COVID-19 AND Have One or More of the Symptoms Below : No *Travel to a Country With Wide-Spread Ebola/MERS/COVID-19 in the Past 21 Days AND Have One or More of the Symptoms Below : No Patient Reported Covid-19 Testing : No *Verify Droplet, Contact Precautions for Ebola (Reference for CDC) : N/A *Verify Airborne, Droplet Precautions for MERS/COVID-19 : N/A Karla Mehta - 12/16/2024 8:04 EST Medicare/Medicaid Summary Respiratory Rate : 16 br/min Tyson Karla Lozano 12/16/2024 8:36 EST Chief Complaint : Subsequent Medicare Wellness Patient Counseled : Nutrition, Physical activity, Elevated BMI Height/Length Measured : 160 cm(Converted to: 5 ft 3 in, 62.99 in) Weight Measured : 71.1 kg(Converted to: 156 lb 12 Ounces, 156.749 lb) Body Mass Index Measured : 27.77 kg/m2 Height in Inches : 63 in Weight in Pounds : 156.748 lb Systolic Blood Pressure : 160 mmHg (HI) Diastolic Blood Pressure : 80 mmHg Blood Pressure Location : Left arm Blood Pressure Position : Sitting O2 Sat Resting/Exertion Alpha : Resting Peripheral Pulse Rate : 78 bpm SpO2 : 95 % Pain Present : No actual or suspected pain Karla Mehta 12/16/2024 8:04 EST Patient Preferred Method of Communication No Preference Hearing and Vision Screening FT FT Whisper Test Comments : no hearing deficits Vision Screen Comments : wears corrective lens. Does yearly eye exams at [facility]. Karla Mehta - 12/16/2024 8:04 EST Advance Directive FT Advance Directive : Yes Type of Advance Directive : Living will, Medical durable power of disability attorney Location of Advance Directive : Family to bring in copy from home Organ Donation Consent : Yes Karla Mehta - 12/16/2024 8:04 EST Procedures / Surgeries FT - Procedure History (As Of: 12/16/2024 08:25:06 EST) Procedure Dt/Tm: 10/30/2005 ; Anesthesia Minutes: 0 ; Procedure Name: Appendectomy ; Procedure Minutes: 0 ; Last Reviewed Dt/Tm: 12/16/2024 08:09:16 EST Procedure Dt/Tm: 10/30/1993 ; Anesthesia Minutes: 0 ; Procedure Name: Bilateral tubal ligation ; Procedure Minutes: 0 ; Last Reviewed Dt/Tm: 12/16/2024 08:09:16 EST Anesthesia Minutes: 0 ; Procedure Name: Tonsillectomy ; Procedure Minutes: 0 ; Last Reviewed Dt/Tm: 12/16/2024 08:09:16 EST Procedure Dt/Tm: 10/30/2009 ; Anesthesia Minutes: 0 ; Procedure Name: Colonoscopy ; Procedure Minutes: 0 ; Last Reviewed Dt/Tm: 12/16/2024 08:09:16 EST Anesthesia Minutes: 0 ; Procedure Name: Cystoscopy ; Procedure Minutes: 0 ; Comments: 04/30/2019 10:20 Alexandra Serrano UD 10/01/18 ; Last Reviewed Dt/Tm: 12/16/2024 08:09:16 EST Procedure Dt/Tm: 10/01/2018 ; Anesthesia Minutes: 0 ; Procedure Name: Cysto/UD ; Procedure Minutes: 0 ; Last Reviewed Dt/Tm: 12/16/2024 08:09:16 EST Anesthesia Minutes: 0 ; Procedure Name: Surgery, rectocele repair ; Procedure Minutes: 0 ; Comments: 12/04/2023 9:42 EST - Sil Agarwal LPN 2021 ; Last Reviewed Dt/Tm: 12/16/2024 08:09:16 EST Family History Family History (As Of: 12/16/2024 08:25:07 EST) Father: Relation: Father ; Gender: Male ; Nomenclature: Esophageal cancer ; Value: Positive Nomenclature: Alcoholism ; Value: Positive Mother: Relation: Mother ; Gender: Female ; Nomenclature: Heart disease ; Value: Positive Nomenclature: Hypertension ; Value: Positive Nomenclature: Hyperthyroidism ; Value: Positive Medicare/Medicaid Social History FT Social History (As Of: 12/16/2024 08:25:07 EST) Alcohol: Current, Wine, 1-2 times per week, Alcohol use interferes with work or home: No. Drinks more than intended: No. Others hurt by drinking: No. Ready to change: No. Household alcohol concerns: No. Comments: 12/16/2024 8:10 - Karla Mehta: drinks 1-2 glasses of wine 2-3 times a week. (Last Updated: 12/16/2024 08:10:59 EST by Karla Mehta) Tobacco: Former smoker, quit more than 30 days ago Tobacco Use:. Comments: 12/16/2024 8:10 - Karla Mehta: denies use. quit at 27 years old. 12/13/2023 8:00 - Matt Cooper: quit age 27 (Last Updated: 12/16/2024 08:10:11 EST by Karla Mehta) Substance Abuse: Denies Substance Abuse Never Comments: 12/16/2024 8:09 - Karla Mehta: denies use (Last Updated: 12/16/2024 08:09:45 EST by Karla Mehta) Depression Screening Little Interest, Pleasure in Activities (ref) : Not at all Feeling Down, Depressed, Hopeless : Not at all Initial Depression Screening Score : 0 SCORE Depression Screening Result : Negative Karla Mehta - 12/16/2024 8:04 EST Social Determinants (PRAPARE) Only Required Gamez highlighed in yellow need to be filled out and will trigger a referral to the Chronic Care Navigators : [place] What is your housing situation today? : I have housing You or Family Gone Without Household Needs Past Year : No (more content not included)... Normal [facility] Comment on above: Result Comment: Elec tronically Signed By: Ian Maurer MD\.br\Date and Time Signed: 01/01/25 09:41 EST\.br\Electronically Co-Signed By: Karla Mehta\.br\Date and Time Co-Signed: 12/16/24 09:08 EST PAP [id number] 11-13-2024 Cytology report Cyto stain Doc (Cvx/Vag) Note Invalid Interpretation Code [facility] Comment on above: Result Comment: TEST S RESULT FLAG UNITS REF RANGE LAB Clinician Provided Cytology Information Source.............Endocervix No. of containers..01 ThinPrep Vial DIAGNOSIS: 01 NEGATIVE FOR INTRAEPITHELIAL LESION OR MALIGNANCY. Specimen adequacy: 01 Satisfactory for evaluation. Endocervical and/or squamous metaplastic cells (endocervical component) are present. Performed by: 01 Fabienne Hanley, Reduction Furnace Operator Helper (ASCP) . 01 Note: Note 01 The Pap smear is a screening test designed to aid in the detection of premalignant and malignant conditions of the uterine cervix. It is not a diagnostic procedure and should not be used as the sole means of detecting cervical cancer. Both false-positive and false-negative reports do occur. Test Methodology: Note 01 This liquid based ThinPrep(R) pap test was screened with the use of an image guided system. HPV Genotype Reflex Note 01 Criteria not met, HPV Genotype not performed. FLAG LEGEND: L-Low Normal,H-High Normal,LL-Alert Low,HH-Alert High <-Panic Low,>-Panic High,A-Abnormal,AA-Critical Abnormal Performed at: [address] [place] [address] Louann Ascencio MD, Performed By: #### 1 [id number] #### [facility] [address] [place] [address] HPV 16+18+31+33+35+39+ 45+51+52+56+58+59+ 66+68 DNA Probe+sig amp Ql (Cvx) Negative Invalid Interpretation Code Negative [facility] Comment on above: Result Comment: This nucleic acid amplification test detects fourteen high-risk HPV types (16,18,31,33,35,39,45,51,52,56,58,59,66,68) without differentiation. Performed at: [address] [id number] MD Sonu Lew Performed at: =[facility] [address] [place], [place] [id number] MD Sonu Lew Performed By: #### 1 [id number] #### [facility] [address] [place] [address] Ambulatory Visit Summaryon 0 11-08-2024 Ambulatory Visit Summary Ambulatory Visit Summary JESS SILVA :1955 Visit Date:11/08/2024 Ambulatory Visit Instructions Your Diagnosis Former smoker BMI 27.0-27.9,adult Overweight (BMI 25.0-29.9) Your Care Team Attending Physician - Leila Drummond Primary Care Physician - Ian Maurer MD This Is Your Medications List Non-Formulary Medication (magnesium) alendronate (Fosamax 70 mg Tab) ascorbic acid (Vitamin C 500 mg oral tablet, chewable) cranberry (Azo cranberry) lactobacillus acidophilus (Acidophilus Probiotic Blend) multivitamin with minerals (Multivitamin, Therapeutic w/ Minerals) Procedures Performed Cystourethroscopy with dilation of urethral stricture (10/01/2018), Colonoscopy (10/30/2009), Appendectomy (10/30/2005), Bilateral tubal ligation (10/30/1993), Cystoscopy, Surgery, Tonsillectomy. Discharge Vitals Temperature (Oral) 36.6 ???C Heart Rate (Peripheral) 78 Respiratory Rate 18 Blood Pressure 160/90 Height 160.0 cm Height 63 in Weight 70.15 kg Weight 154.654 lb BMI 27.4 What to do next Scheduled Follow-Up Appointments Monday 8:00 AM EST Where: [facility] [address] [address]- Medications What How Much When Instructions Unchanged alendronate (Fosamax 70 mg Tab) 1 Tablets By Mouth Every 7 days Unchanged ascorbic acid (Vitamin C 500 mg oral tablet, chewable) Chewed Every day Unchanged cranberry (Azo cranberry) 2 Tablets By Mouth Every day Unchanged lactobacillus acidophilus (Acidophilus Probiotic Blend) 1 Capsules By Mouth Every day Unchanged multivitamin with minerals (Multivitamin, Therapeutic w/ Minerals) 1 Tablets By Mouth Every day Unchanged Non-Formulary Medication (magnesium) Allergies No Known Allergies Problems Ongoing - Any problem that you are currently receiving treatment for. Cystocele with prolapse Former smoker Incomplete bladder emptying Overactive bladder Screening for malignant neoplasm of colon Unspecified urethral stricture, female White coat syndrome with high blood pressure but without hypertension Patient Survey You may receive a survey via text or e-mail asking about your office visit. Please share your experience with us by completing your survey. We appreciate your feedback and thank you for choosing us for your care. Normal [facility] Family Medicine Office/Clini c Noteon 11-08-2024 Family Medicine Office/Clinic Note Family Medicine Office/Clinic Note HPI Staff Casie is a 69 year old female presenting with physical Woman check up: Last pap: 2022 Results of lap pap: Normal Where was it done: here hx: # of pregnancies...6 abortions... 0 live births... 4 living children...4 menstrual cycle (normal,heavy,ect): no 2009 History of STD: no Do you want tested for STD today: no Vaginal discharge, odor, itching: no Self breast exam at home? monthly Hx of breast, cervical or uterine cancer in the family: no Hysterectomy- no Mammogram- May 2024- Normal History of Present Illness pt presents today for well woman exam Review of Systems PHQ Score Initial Depression Screen Score: 0 SCORE Physical Exam Vitals & Measurements T: 36.6 ???C(Oral) HR: 78(Peripheral) RR: 18 BP: 160/90 SpO2: 99% HT: 63 in HT: 160.0 cm WT: 70.15 kg WT: 154.654 lb BMI: 27.4 General: Well developed, well nourished, in no acute distress Neck: Neck supple. No masses or palpable cervical nodes. Trachea midline. Thyroid without nodules, masses, tenderness, or enlargement Breast: No mass, nodule, discharge, or erythema bilaterally, and no axillary lymphadenopathy Lungs: Normal respiratory effort and clear to auscultation Cardio: Regular rate and rhythm, normal S1 and S2, no murmur, no rub Abdomen: Soft, non-distended, non-tender, normal bowel sounds x4 Gyno: normal external genitalia. Urethra no discharge. Vagina normal without lesions, no vaginal discharge. Cervix normal, without lesions. Uterus normal. No adnexal masses. Pap obtained multiple large hemorrhoids noted on exam Neurologic: Grossly normal Skin: [place], moist, no tenting Lymph Nodes: No cervical adenopathy, nodes normal Mental Status: Alert and oriented x3. Normal mood and affect Assessment/Plan 1. Well woman exam (Z01.419: Encounter for gynecological examination (general) (routine) without abnormal findings) pt presents today for well woman exam. BSE discussed. mammogram was negative. pap obtained without difficulty. RTC as needed Ordered: Est Preventative 65+ years [address] PAP [id number] w/ HPV and Genotype rflx 2. Cervical cancer screening (Z12.4: Encounter for screening for malignant neoplasm of cervix) pap obtained Ordered: Est Preventative 65+ years [address] PAP [id number] w/ HPV and Genotype rflx 3. Former smoker (Z87.891: Personal history of nicotine dependence) continue not smoking Ordered: Est Preventative 65+ years [address] PAP [id number] w/ HPV and Genotype rflx 4. BMI 27.0-27.9,adult (Z68.27: Body mass index [BMI] 27.0-27.9, adult) BMI education given Ordered: Est Preventative 65+ years [address] PAP [id number] w/ HPV and Genotype rflx 5. Overweight (BMI 25.0-29.9) (E66.3: Overweight) see above Ordered: Est Preventative 65+ years [address] PAP [id number] w/ HPV and Genotype rflx Follow-up No qualifying data available Problem List/Past Medical History Ongoing Cervical cancer screening Cystocele with prolapse Former smoker Incomplete bladder emptying Overactive bladder Screening for malignant neoplasm of colon Unspecified urethral stricture, female Well woman exam White coat syndrome with high blood pressure but without hypertension Historical No qualifying data Procedure/Surgical History Cystourethroscopy with dilation of urethral stricture (10/01/2018), Colonoscopy (10/30/2009), Appendectomy (10/30/2005), Bilateral tubal ligation (10/30/1993), Cystoscopy, Surgery, Tonsillectomy. Medications Acidophilus Probiotic Blend, 1 cap(s), Oral, Daily Azo cranberry, 2 tab(s), Oral, Daily Fosamax 70 mg Tab, 70 mg= 1 tab(s), Oral, q7day, 3 refills magnesium Multivitamin, Therapeutic w/ Minerals, 1 tab(s), Oral, Daily Vitamin C 500 mg oral tablet, chewable, Chewed, Daily Allergies No Known Allergies Social History Alcohol Current. Wine. 1-2 times per week., 11/03/2024 Substance Abuse - Denies Substance Abuse, 04/15/2020 Never., 11/03/2024 Tobacco Former smoker, quit more than 30 days ago Tobacco Use:., 11/08/2024 Family History Alcoholism: Father. Esophageal cancer: Father. Heart disease: Mother. Hypertension: Mother. Hyperthyroidism: Mother. Immunizations Vaccine Date Status Comments influenza virus vaccine, inactivated 07/19/2023 Recorded pneumococcal 23-valent vaccine 01/04/2023 Recorded diphtheria/pertussis , acel/tetanus adult 10/05/2022 Recorded SARS-CoV-2 (COVID-19) mRNAMUL.ORD![id number] 10/05/2022 Recorded influenza virus vaccine, inactivated 08/08/2022 Recorded SARS-CoV-2 mRNA (tozinameran 5y-11y) vac - Not Given Postpone due to refusal SARSCoV2 mRNA(tozinamer-valdez- sucros) vac 02/07/2022 Recorded zoster vaccine, inactivated 01/18/2022 Recorded SARS-CoV-2 (COVID-19) mRNA BNT-162b2 vax 07/27/2021 Recorded 2023-12-04: [id number] SARS-CoV-2 (COVID-19) mRNA BNT-162b2 vax 01/19/2021 Recorded SARS-CoV-2 (COVID-19) mRNA BNT-162b2 vax 12/28/2020 Recorded influenza virus vaccine, inactivated 08/04/2020 (more content not included)... Normal [facility] Comment on above: Result Comment: Elec tronically Signed By: Leila Drummond\.br\Date and Time Signed: 11/08/24 08:51 EST PAP [id number] 11-08-2024 Gynecological Body Site ENDOCERVIX Normal [facility] Comment on above: Performed By: #### 1 [id number] #### [facility] [address] [place] [id number] Pre-Visit Planningon 025 Pre-Visit Planning Pre-Visit Planning - From: Cindi Allen To: Leila Drummond; Sent: 11/07/2024 08:02:00 EST Subject: Pre-Visit Planning Due Date/Time: 11/07/2024 08:01:00 EST Caller Name: JESS SILVA; Caller Number: , Va Leila. During a pre-visit planning chart review, I noted the following medication documented in the medical record: alendronate. Based on your medical judgement, can you please indicate what conditions indicate the necessity of the medication/treatment ? I can update the Chronic Problem List with your response if you would like. -Osteoporosis -Other (please specify): In responding to this request, please exercise your independent professional judgement. The fact that a question is asked does not imply that any particular answer is desired or expected. If you have any questions, please feel free to contact me at extension [phone]. Thank you! Cindi Allen LPN Clinical Telecommunications Clerk [place] [phone] Extension: [phone] [email or web address] Ambulatory Visit Summaryon 0 05-14-2024 Ambulatory Visit Summary Ambulatory Visit Summary JESS SILVA :1955 Visit Date:05/14/2024 Ambulatory Visit Instructions Your [...] 8:20 AM EST With: Leila Drummond Where: [place] [address]- \.br\ Medications\.br\ What How Much When Instructions\.br\ [...] to strengthen your muscles (resistance exercise), such Jeffry [facility] Family Medicine Office/Clini c Claudia 05-14-2024 Family Medicine Office/Clinic Note Family Medicine Office/Clinic Note HPI Staff Jess [...] , acel/tetanus adult 10/05/2022 Recorded SARS-CoV-2 (COVID-19) mRNAMUL.ORD![id number] 10/05/2022 Recorded influenza virus vaccine, inactivated 08/08/2022 [...] influenza virus vaccine, inactivated 07/31/2019 Recorded Normal [facility] Comment on above: Result Comment: Elec tronically Signed By: Ian Maurer MD\.br\Date and Time Signed: 05/14/24 07:48 EDT Lab Reportson 03-14-2024 Lab Reports [id number] Normal [facility] Ambulatory Visit Summaryon 0 02-12-2024 Ambulatory [...] EDT With: Erasto STEIN, Ian Hernandez Where: [facility] Normal [address] [place] [address] \.br\ Medications\.br\ What How Much When Instructions\.br\ New oxybutynin (oxybutynin 5 mg ER Tab) 1 Tablets By Mouth Every day Pickup at [facility]/pharmacy #[id number]\.br\ Unchanged alendronate (Fosamax 70 mg Tab) 1 [...] if questions or concerns \.br\ Pharmacy Information\.br\ [facility]/pharmacy #[id number]: [address], [place] [phone]\.br\ Allergies\.br\ No Known Allergies\.br\ Problems\.br\ Ongoing - [...] for choosing us for your care.\.br\ \.br\ [facility] Family Medicine Office/Clini c Noteon 02-12-2024 Family [...] Daily, # 90 tab(s), Refills(s) 0, Pharmacy: [facility]/pharmacy #[id number], 160, cm, 02/12/24 7:18:00 EDT, Height/Length [...] History Alcoho (more content not included)... Normal [facility] Comment on above: Result Comment: Elec tronically Signed By: Erasto STEIN, Ian Hernandez\.br\Date and Time Signed: 02/12/24 07:39 EDT PAP ACOG PANEL 2: 30 to 65on 12-13-2022 . . Normal [facility] Comment on above: Performed By: #### [id number] #### [facility] [address] [address] [address] Vanesa Cornejo Age Gdln ACOG Testing Comment Normal [facility] Comment on above: Result Comment: <21 or >65 or no age provided Performed By: #### 4 [id number] #### [facility] [address] [address] [address] Vanesa Cornejo DIAGNOSIS: Comment [facility] Comment on above: Result Comment: NEGA TIVE FOR INTRAEPITHELIAL LESION OR MALIGNANCY. CELLULAR CHANGES ASSOCIATED WITH ATROPHY ARE PRESENT. Performed By: #### 4 [id number] #### [facility] [address] [address] [address] Vanesa Cornejo Methodology: Comment [facility] Comment on above: Result Comment: This liquid based ThinPrep(R) pap test was screened with the use of an image guided system. Performed By: #### 4 [id number] #### [facility] [address] [place] [address] Dr. Vanesa Cornejo Note: Comment Normal [facility] Comment on above: Result Comment: The Pap smear is a screening test designed to aid in the detection of premalignant and malignant conditions of the uterine cervix. It is not a diagnostic procedure and should not be used as the sole means of detecting cervical cancer. Both false-positive and false-negative reports do occur. . Performed By: #### 4 [id number] #### [facility] [address] [place] [address] Dr. Vanesa Cornejo Performed by: Comment Normal [facility] Comment on above: Result Comment: Delbert Linn, Reduction Furnace Operator Helper (ASCP) Performed By: #### 4 [id number] #### [facility] [address] [place] [address] Dr. Vanesa Cornejo Specimen adequacy: Comment Normal [facility] Comment on above: Result Comment: Sati sfactory for evaluation. Endocervical component may not be distinguished in cases of atrophy. Performed By: #### 4 [id number] #### [facility] [address] [place] [address] Dr. Vanesa Cornejo CBC AUTO DIFFon 12-09-2022 BASO # 0.0 103/ul Normal 0.0-0.[address] [facility] Comment on above: Performed By: #### C BC #### [facility] [address] [place] [address] Dr. Vanesa Cornejo Basophils/100 WBC (Bld) 0.4 % Normal 0.2-2.[address] [facility] Comment on above: Performed By: #### C BC #### [facility] [address] [place] [address] Dr. Vanesa Cornejo EO # 0.1 103/ul Normal 0.0-0.[address] [facility] Comment on above: Performed By: #### C BC #### [facility] [address] [place] [address] Dr. Vanesa Cornejo Eosinophils/100 WBC (Bld) 2.1 % Normal 0.9-7.[address] [facility] Comment on above: Performed By: #### C BC #### [facility] [address] [place] [address] Dr. Vanesa Cornejo Erythrocyte distribution width (RBC) [Ratio] 13.1 % Normal 11.0-15.[address] [facility] Comment on above: Performed By: #### C BC #### [facility] [address] [place] [address] Dr. Vanesa Cornejo Hematocrit (Bld) [Volume fraction] 39.1 % Normal 36.0-48.[address] [facility] Comment on above: Performed By: #### C BC #### [facility] [address] [place] [address] Dr. Vanesa Cornejo Hemoglobin (Bld) [Mass/Vol] 13.3 g/dL Normal 12.0-16.[address] [facility] Comment on above: Performed By: #### C BC #### [facility] [address] [place] [address] Dr. Vanesa Cornejo IG # 0.01 10e3/ul Normal 0.00-0.[address] [facility] Comment on above: Performed By: #### C BC #### [facility] [address] [place] [address] Dr. Vanesa Cornejo IG % 0.2 % Normal 0.0-0.[address] [facility] Comment on above: Performed By: #### C BC #### [facility] [address] [place] [address] Dr. Vanesa Cornejo LYMPH # 1.1 103/ul Critically low 1.2-3.8 [facility] Comment on above: Performed By: #### C BC #### [facility] [address] [place] [address] Dr. Vanesa Cornejo Lymphocytes/100 WBC (Bld) 22.0 % Normal 20.5-60.[address] [facility] Comment on above: Performed By: #### C BC #### [facility] [address] [place] [address] Dr. Vanesa Cornejo MANUAL DIFF REQ NO Normal [facility] Comment on above: Performed By: #### C BC #### [facility] [address] [address] [address] Vanesa Cornejo MCH (RBC) [Entitic mass] 31.4 pg Normal 26.7-34.[address] [facility] Comment on above: Performed By: #### C BC #### [facility] [address] [place] [address] Dr. Vanesa Cornejo MCHC (RBC) [Mass/Vol] 34.0 g/dL Normal 29.9-35.[address] [facility] Comment on above: Performed By: #### C BC #### [facility] [address] [place] [address] Dr. Vanesa Cornejo MCV (RBC) [Entitic vol] 92.4 fL Normal 81.0-99.[address] [facility] Comment on above: Performed By: #### C BC #### [facility] [address] [place] [address] Dr. Vanesa Cornejo MONO # 0.3 103/ul Normal 0.3-0.[address] [facility] Comment on above: Performed By: #### C BC #### [facility] [address] [place] [address] Dr. Vanesa Cornejo Monocytes/100 WBC (Bld) 6.9 % Normal 1.7-12.[address] [facility] Comment on above: Performed By: #### C BC #### [facility] [address] [place] [address] Dr. Vanesa Cornejo NEUT # 3.3 103/ul Normal 1.4-6.5 [facility] Comment on above: Performed By: #### C BC #### [facility] [address] [place] [address] Dr. Vanesa Cornejo Neutrophils/100 WBC (Bld) 68.4 % Normal 43.0-75.0 [facility] Comment on above: Performed By: #### C BC #### [facility] [address] [place] [address] Dr. Vanesa Cornejo Platelet mean volume (Bld) [Entitic vol] 8.7 fL Critically low 9.5-13.[address] [facility] Comment on above: Performed By: #### C BC #### [facility] [address] [address] [address] Vanesa Cornejo PLT 286 103/ul Normal 150-450 [facility] Comment on above: Performed By: #### C BC #### [facility] [address] [place] [address] Dr. Vanesa Cornejo RBC 4.23 106/ul Normal 4.20-5.[address] [facility] Comment on above: Performed By: #### C BC #### [facility] [address] [place] [address] Dr. Vanesa Cornejo WBC 4.8 103/ul Normal 4.0-11.[address] [facility] Comment on above: Performed By: #### C BC #### [facility] [address] [place] [address] Dr. Vanesa Cornejo LIPID PROFILEon 12-09-2022 CHOL-HDL RATIO NORM SEE BELOW Normal [facility] Comment on above: Result Comment: 3.3 - 4.4 LOW RISK 4.4 - 7.1 AVERAGE RISK 7.1 - 11.0 MODERATE RISK >11.0 HIGH RISK Performed By: #### L IPID, CMP #### [facility] [address] [place] [address] Dr. Vanesa Cornejo Cholesterol [Mass/Vol] 216 mg/dL Critically high <=200 [facility] Comment on above: Performed By: #### L IPID, CMP #### [facility] [address] [place] [address] Dr. Vanesa Cornejo Cholesterol in HDL [Mass/Vol] 64 mg/dL Critically high 40-60 [facility] Comment on above: Performed By: #### L IPID, CMP #### [facility] [address] [place] [address] Dr. Vanesa Cornejo Cholesterol in LDL [Mass/Vol] 124.8 mg/dL Normal [facility] Comment on above: Performed By: #### L IPID, CMP #### [facility] [address] [place] [address] Dr. Vanesa Cornejo Cholesterol.total/ Cholesterol in HDL [Mass ratio] 3.4 {ratio} Normal [facility] Comment on above: Performed By: #### L IPID, CMP #### [facility] [address] [address] [address] Vanesa Cornejo HDL NORMAL > or = 60 mg/dl - LOW CARDIOVASCULAR RISK <40 mg/dl - HIGH CARDIOVASCULAR RISK Normal [facility] Comment on above: Performed By: #### L IPID, CMP #### [facility] [address] [address] [address] Vanesa Cornejo LDL CALC NORMAL SEE BELOW Normal [facility] Comment on above: Result Comment: <100 mg/dl OPTIMAL 100 - 129 mg/dl NEAR OR ABOVE OPTIMAL 130 - 159 mg/dl BORDERLINE HIGH 160 - 189 mg/dl HIGH >190 mg/dl VERY HIGH Performed By: #### L IPID, CMP #### [facility] [address] [address] [address] Vanesa Cornejo Triglyceride [Mass/Vol] 136 mg/dL Normal <=[address] [facility] Comment on above: Performed By: #### L IPID, CMP #### [facility] [address] [address] [address] Vanesa Cornejo VLDL CALC 27.2 mg/dL Normal [facility] Comment on above: Performed By: #### L IPID, CMP #### [facility] [address] [address] [address] Vanesa Cornejo PROF 14(COMP METB)on 023 Albumin [Mass/Vol] 4.2 g/dL Normal 3.4-5.0 [facility] Comment on above: Performed By: #### L IPID, CMP #### [facility] [address] [address] [address] Vanesa Cornejo Albumin/Globulin [Mass ratio] 1.4 {ratio} Normal [facility] Comment on above: Performed By: #### L IPID, CMP #### [facility] [address] [address] [address] Vanesa Cornejo ALP [Catalytic activity/Vol] 64 U/L Normal 46-[address] [facility] Comment on above: Performed By: #### L IPID, CMP #### [facility] [address] [address] [address] Vanesa Cornejo ALT [Catalytic activity/Vol] 31 U/L Normal 14-[address] [facility] Comment on above: Performed By: #### L IPID, CMP #### [facility] [address] [address] [address] Vanesa Cornejo Anion gap [Moles/Vol] 11.7 mmol/L Normal [facility] Comment on above: Performed By: #### L IPID, CMP #### [facility] [address] [address] [address] Vanesa Cornejo AST [Catalytic activity/Vol] 28 U/L Normal 15-[address] [facility] Comment on above: Performed By: #### L IPID, CMP #### [facility] [address] [address] [address] Vanesa Cornejo Bilirubin [Mass/Vol] 1.9 mg/dL Critically high 0.2-1.[address] [facility] Comment on above: Performed By: #### L IPID, CMP #### [facility] [address] [address] [address] Vanesa Cornejo Calcium [Mass/Vol] 9.4 mg/dL Normal 8.5-10.1 [facility] Comment on above: Performed By: #### L IPID, CMP #### [facility] [address] [address] [address] Vanesa Cornejo Chloride [Moles/Vol] 103 mmol/L Normal 98-[address] [facility] Comment on above: Performed By: #### L IPID, CMP #### [facility] [address] [address] [address] Vanesa Cornejo CO2 [Moles/Vol] 29.8 mmol/L Normal 21.0-32.0 [facility] Comment on above: Performed By: #### L IPID, CMP #### [facility] [address] [address] [address] Vanesa Cornejo Creatinine [Mass/Vol] 0.48 mg/dL Critically low 0.55-1.[address] [facility] Comment on above: Performed By: #### L IPID, CMP #### [facility] [address] [place] [address] Dr. Vanesa Cornejo EGFR-AF SAMMARINESE >60 Normal >=60 [facility] Comment on above: Performed By: #### L IPID, CMP #### [facility] [address] [address] [address] Vanesa Cornejo EGFR-NON AF SAMMARINESE >60 Normal >=[address] [facility] Comment on above: Performed By: #### L IPID, CMP #### [facility] [address] [address] [address] Vanesa Cornejo Globulin (S) [Mass/Vol] 2.9 g/dL Normal [facility] Comment on above: Performed By: #### L IPID, CMP #### [facility] [address] [place] [address] Dr. Vanesa Cornejo Glucose [Mass/Vol] 102 mg/dL Normal 74-106 [facility] Comment on above: Performed By: #### L IPID, CMP #### [facility] [address] [address] [address] Vanesa Cornejo Potassium [Moles/Vol] 4.5 mmol/L Normal 3.5-5.[address] [facility] Comment on above: Performed By: #### L IPID, CMP #### [facility] [address] [address] [address] Vanesa Cornejo Protein [Mass/Vol] 7.1 g/dL Normal 6.4-8.2 [facility] Comment on above: Performed By: #### L IPID, CMP #### [facility] [address] [address] [address] Vanesa Cornejo Sodium [Moles/Vol] 140 mmol/L Normal 136-145 [facility] Comment on above: Performed By: #### L IPID, CMP #### [facility] [address] [address] [address] Vanesa Cornejo Urea nitrogen [Mass/Vol] 12.0 mg/dL Normal 7.0-18.[address] [facility] Comment on above: Performed By: #### L IPID, CMP #### [facility] [address] [place] [address] Dr. Vanesa Cornejo Urea nitrogen/Creatinin e [Mass ratio] 25.0 mg/mg Normal [facility] Comment on above: Performed By: #### L IPID, CMP #### [facility] [address] [place] [address] Dr. Vanesa Cornejo BUNon 08-23-2022 Urea nitrogen [Mass/Vol] 6.0 mg/dL Critically low 7.0-18.[address] [facility] Comment on above: Performed By: #### C ANTONIO, BUN #### [facility] [address] [place] [address] Dr. Vanesa Cornejo CBC AUTO DIFFon 08-23-2022 BASO # 0.0 103/ul Normal 0.0-0.[address] [facility] Comment on above: Performed By: #### C BC #### [facility] [address] [place] [address] Dr. Vanesa Cornejo Basophils/100 WBC (Bld) 0.2 % Normal 0.2-2.[address] [facility] Comment on above: Performed By: #### C BC #### [facility] [address] [place] [address] Dr. Vanesa Cornejo EO # 0.0 103/ul Normal 0.0-0.[address] [facility] Comment on above: Performed By: #### C BC #### [facility] [address] [place] [address] Dr. Vanesa Cornejo Eosinophils/100 WBC (Bld) 0.2 % Critically low 0.9-7.0 [facility] Comment on above: Performed By: #### C BC #### [facility] [address] [place] [address] Dr. Vanesa Cornejo Erythrocyte distribution width (RBC) [Ratio] 12.1 % Normal 11.0-15.[address] [facility] Comment on above: Performed By: #### C BC #### [facility] [address] [place] [address] Dr. Vanesa Cornejo Hematocrit (Bld) [Volume fraction] 32.8 % Critically low 36.0-48.[address] [facility] Comment on above: Performed By: #### C BC #### [facility] [address] [place] [address] Dr. Vanesa Cornejo Hemoglobin (Bld) [Mass/Vol] 10.9 g/dL Critically low 12.0-16.[address] [facility] Comment on above: Performed By: #### C BC #### [facility] [address] [place] [address] Dr. Vanesa Cornejo IG # 0.03 10e3/ul Normal 0.00-0.[address] [facility] Comment on above: Performed By: #### C BC #### [facility] [address] [place] [address] Dr. Vanesa Cornejo IG % 0.3 % Normal 0.0-0.[address] [facility] Comment on above: Performed By: #### C BC #### [facility] [address] [place] [address] Dr. Vanesa Cornejo LYMPH # 1.0 103/ul Critically low 1.2-3.8 [facility] Comment on above: Performed By: #### C BC #### [facility] [address] [place] [address] Dr. Vanesa Cornejo Lymphocytes/100 WBC (Bld) 10.9 % Critically low 20.5-60.[address] [facility] Comment on above: Performed By: #### C BC #### [facility] [address] [place] [address] Dr. Vanesa Cornejo MANUAL DIFF REQ NO Normal [facility] Comment on above: Performed By: #### C BC #### [facility] [address] [place] [address] Dr. Vanesa Cornejo MCH (RBC) [Entitic mass] 31.5 pg Normal 26.7-34.[address] [facility] Comment on above: Performed By: #### C BC #### [facility] [address] [place] [address] Dr. Vanesa Cornejo MCHC (RBC) [Mass/Vol] 33.2 g/dL Normal 29.9-35.[address] [facility] Comment on above: Performed By: #### C BC #### [facility] [address] [address] [address] Vanesa Cornejo MCV (RBC) [Entitic vol] 94.8 fL Normal 81.0-99.[address] [facility] Comment on above: Performed By: #### C BC #### [facility] [address] [address] [address] Vanesa Cornejo MONO # 0.6 103/ul Normal 0.3-0.[address] [facility] Comment on above: Performed By: #### C BC #### [facility] [address] [place] [address] Dr. Vanesa Cornejo Monocytes/100 WBC (Bld) 6.6 % Normal 1.7-12.[address] [facility] Comment on above: Performed By: #### C BC #### [facility] [address] [place] [address] Dr. Vanesa Cornejo NEUT # 7.7 103/ul Critically high 1.4-6.5 [facility] Comment on above: Performed By: #### C BC #### [facility] [address] [place] [address] Dr. Vanesa Cornejo Neutrophils/100 WBC (Bld) 81.8 % Critically high 43.0-75.0 [facility] Comment on above: Performed By: #### C BC #### [facility] [address] [place] [address] Dr. Vanesa Cornejo Platelet mean volume (Bld) [Entitic vol] 8.9 fL Critically low 9.5-13.5 [facility] Comment on above: Performed By: #### C BC #### [facility] [address] [place] [address] Dr. Vanesa Cornejo PLT 240 103/ul Normal 150-450 [facility] Comment on above: Performed By: #### C BC #### [facility] [address] [place] [address] Dr. Vansea Cornejo RBC 3.46 106/ul Critically low 4.20-5.40 [facility] Comment on above: Performed By: #### C BC #### [facility] [address] [place] [address] Dr. Vanesa Cornejo WBC 9.4 103/ul Normal 4.0-11.[address] [facility] Comment on above: Performed By: #### C BC #### [facility] [address] [place] [address] Dr. Vanesa Cornejo CREATININEon 08-23-2022 Creatinine [Mass/Vol] 0.51 mg/dL Critically low 0.55-1.[address] [facility] Comment on above: Performed By: #### C ANTONIO, BUN #### [facility] [address] [place] [address] Dr. Vanesa Cornejo EGFR-AF SAMMARINESE >60 Normal >=60 [facility] Comment on above: Performed By: #### C ANTONIO, BUN #### [facility] [address] [place] [address] Dr. Vanesa Cornejo EGFR-NON AF SAMMARINESE >60 Normal >=[address] [facility] Comment on above: Performed By: #### C ANTONIO, BUN #### [facility] [address] [place] [address] Dr. Vanesa Cornejo CULTURE URINEon 06-10-2022 CULTURE URINE Culture Observations: No growth Normal [facility] Comment on above: Performed By: #### U RCX #### [facility] [address] [place] [address] Dr. Vanesa Cornejo UA (CLEAN/CATCH) MICROSCOPIC IF INDICATEon 06-10-2022 Bilirubin Ql (U) Negative Normal NEGATIVE [facility] Comment on above: Performed By: #### U MICRO, UARMICR #### [facility] [address] [place] [address] Dr. Vanesa Cornejo Clarity (U) CLEAR Normal CLEAR [facility] Comment on above: Performed By: #### U MICRO, UARMICR #### [facility] [address] [place] [address] Dr. Vanesa Cornejo Color (U) YELLOW Normal YELLOW [facility] Comment on above: Performed By: #### U MICRO, UARMICR #### [facility] [address] [address] [address] Vanesa Cornejo Glucose Ql (U) Negative Normal NEGATIVE [facility] Comment on above: Performed By: #### U MICRO, UARMICR #### [facility] [address] [address] [address] Vanesa Cornejo Hemoglobin Ql (U) Negative Normal NEGATIVE [facility] Comment on above: Performed By: #### U MICRO, UARMICR #### [facility] [address] [address] [address] Vanesa Cornejo Ketones Ql (U) Negative Normal NEGATIVE [facility] Comment on above: Performed By: #### U MICRO, UARMICR #### [facility] [address] [place] [address] Dr. Vanesa Cornejo LEUKOCYTES SMALL Abnormal NEGATIVE [facility] Comment on above: Performed By: #### U MICRO, UARMICR #### [facility] [address] [address] [address] Vanesa Cornejo Nitrite Ql (U) Negative Normal NEGATIVE [facility] Comment on above: Performed By: #### U MICRO, UARMICR #### [facility] [address] [place] [address] Dr. Vanesa Cornejo pH (U) 6.0 [pH] Normal 5-9 [facility] Comment on above: Performed By: #### U MICRO, UARMICR #### [facility] [address] [place] [address] Dr. Vanesa Cornejo SPEC GRAVITY 1.020 Normal 1.005-<=1.025 [facility] Comment on above: Performed By: #### U MICRO, UARMICR #### [facility] [address] [place] [address] Dr. Vanesa Cornejo UA PROTEIN Negative Normal NEGATIVE/ TRACE [facility] Comment on above: Performed By: #### U MICRO, UARMICR #### [facility] [address] [address] [address] Vanesa Cornejo UR MICRO IND INDICATED Normal [facility] Comment on above: Performed By: #### U MICRO, UARMICR #### [facility] [address] [place] [address] Dr. Vanesa Cornejo Urobilinogen Qn (U) 0.2 {Daquan'U}/dL Normal 0.2 - 1.0 [facility] Comment on above: Performed By: #### U MICRO, UARMICR #### [facility] [address] [place] [address] Dr. Vanesa Cornejo URINE MICROSCOPIC ONLYon BACTERIA TRACE Abnormal NONE SEEN The [facility] Comment on above: Performed By: #### U MICRO, UARMICR #### [facility] [address] [place] [address] Dr. Vanesa Cornejo Bacteria identified Cx Nom (U) CX ALREADY ORDERED Normal [facility] Comment on above: Performed By: #### U MICRO, UARMICR #### [facility] [address] [place] [address] Dr. Vanesa Cornejo CAST NONE SEEN Normal NONE SEEN [facility] Comment on above: Performed By: #### U MICRO, UARMICR #### [facility] [address] [place] [address] Dr. Vanesa Cornejo Crystals LM Nom (Urine sed) NONE SEEN Normal NONE SEEN [facility] Comment on above: Performed By: #### U MICRO, UARMICR #### [facility] [address] [place] [address] Dr. Vanesa Cornejo Epithelial cells LM Ql (Urine sed) RARE Normal NONE SEEN /RARE [facility] Comment on above: Performed By: #### U MICRO, UARMICR #### [facility] [address] [place] [address] Dr. Vanesa Cornejo MUCOUS TRACE Abnormal NONE SEEN [facility] Comment on above: Performed By: #### U MICRO, UARMICR #### [facility] [address] [place] [address] Dr. Vanesa Cornejo RBC 0-2 Normal 0-2 [facility] Comment on above: Performed By: #### U MICRO, UARMICR #### [facility] [address] [place], [place] [address] Dr. Vanesa Cornejo WBC 2-5 Abnormal NONE SEEN [facility] Comment on above: Performed By: #### U MICRO, UARMICR #### [facility] [id number] Vanesa Cornejo MG MAMM SCREEN 3D MAGDIEL CADon 05-18-2022 MG MAMM SCREEN 3D MAGDIEL CAD Patient: JESS SILVA Exam Date: 05/18/2022 : 1955 Gender:F Ordering : DR MYKE CORNELIUS . Admission #: [id number] Family : Order #: [id number] CLICK HERE TO VIEW EXAM RADIOLOGY REPORT PROCEDURE: MAMMOGRAM SCREENING 3D BILATERAL CAD COMPARISON: MG MAMM SCREEN 3D MAGDIEL CAD, 05/17/2021. MG MAMM SCREEN MAGDIEL W CAD, 05/15/2020. INDICATIONS: Screening mammography Calculator Name NCI Breast Cancer Risk Assessment Tool 5 Year Breast Cancer Risk 1.90% Lifetime Breast Cancer Risk 6.40% Personal Breast Cancer No Personal Ovarian Cancer No Treatments None Family Cancers None LOCATION: The [facility] BREAST COMPOSITION: Heterogeneously dense,which may obscure small [...] Bolaños M.D. on 05/18/2022 at 15:[address] [facility] Encounters Encounter Date Encounter Type Care Provider Facility Start: 12-16-2025 ambulatory MD Ian Maurer [facility] ity:[facility] Start: 12-16-2024 End: 12-16-2024 ambulatory Ian Maurer Facility:[facility] Start: 11-08-2024 End: 11-08-2024 ambulatory Leila L Vilma Facility:[facility] Start: 11-08-2024 End: 11-08-2024 Lab Drop off Leila L Vilma [facility] Start: 11-08-2024 End: 11-08-2024 ambulatory Leila L Vilma Facility:[facility] Start: 05-22-2024 End: 05-22-2024 ambulatory Ian Maurer Facility:[facility] Start: 05-14-2024 End: 05-14-2024 ambulatory Ian Maurer Facility:[facility] Start: 03-11-2024 End: 03-11-2024 ambulatory NICHELLE CARPENTER Not Available Start: 03-08-2024 End: 03-08-2024 ambulatory NICHELLE CARPENTER Not Available Start: 02-12-2024 End: 02-12-2024 ambulatory Ian Maurer Facility:[facility] Start: 12-09-2022 End: 12-10-[address] MYKE CORNELIUS Facility:[facility] Start: 12-07-2022 End: 12-07-[address] MYKE CORNELIUS Facility:[facility] Start: 08-22-2022 End: 08-23-[address] JEAN COLLINS Facility:[facility] Start: 08-18-[address] [facility] Start: 08-11-2022 Encounter for preprocedural cardiovascular examination DR JEAN COLLINS [facility] Start: 08-10-2022 End: 08-11-[address] JEAN COLLINS Facility:[facility] Start: 08-10-2022 End: 08-11-2022 Encounter for preprocedural cardiovascular examination DR JEAN COLLINS Facility:[facility] Start: 07-20-2022 End: 07-20-2022 Patient encounter procedure Jerrod HORTON [facility] Start: 06-22-2022 End: 06-22-2022 Patient encounter procedure CARLOS ALBERTO DUNN [facility] Start: 06-10-2022 End: 06-11-[address] MYKE CORNELIUS Facility:[facility] Start: 05-18-2022 End: 05-19-[address] MYKE CORNELIUS Facility:[facility] Procedures Date Procedure Procedure Detail Performing Clinician Start: 10-01-2018 Cystourethroscopy wi th dilation of urethral stricture CARLOS ALBERTO DUNN Start: 10-30-2009 Colonoscopy CARLOS ALBERTO JOHNSON Start: 10-30-2005 Appendectomy CARLOS ALBERTO JOHNSON Start: 10-30-1993 Bilateral tubal ligation CARLOS ALBERTO DUNN Cystoscopy CARLOS ALBERTO DUNN Comment on above: UD 10/01/18 Surgery (qualifier value) Korin christina [employer] Comment on above: 2021 Tonsillectomy CARLOS ALBERTO DUNN Immunizations Immunization Date Immunization Notes Care Provider Fa [facility] 07-19-2023 influenza virus vaccine, unspecified formulation [employer] [facility] 01-04-2023 pneumococcal polysaccharide vaccine, 23 valent [employer] [facility] 10-05-2022 SARS-CoV-2 (COVID-19 ) [id number] [employer] [facility] 10-05-2022 tetanus toxoid, redu marcy diphtheria toxoid, and acellular pertussis vaccine, adsorbed [employer] [facility] 08-08-2022 influenza virus vaccine, unspecified formulation [employer] [facility] 02-07-2022 SARS-CoV-2 mRNA (yqzgkkpxbqh-deer-jwiix se) vaccine Leila Vilma [facility] 01-18-2022 zoster vaccine recombinant Leila Vilma [facility] 07-27-2021 SARS-CoV-2 (COVID-19 ) mRNA BNT-162b2 vax Leila Vilma [facility] Comment on above: Result Comment: 2023: [id number] 01-19-2021 SARS-CoV-2 (COVID-19 ) mRNA BNT-162b2 vax Leila Vilma [facility] 12-28-2020 SARS-CoV-2 (COVID-19 ) mRNA BNT-162b2 vax Leila Vilma [facility] 08-04-2020 influenza virus vaccine, unspecified formulation Leila Vilma [facility] 07-31-2019 influenza virus vaccine, unspecified formulation Leila Vilma [facility] NEGATED: Highlighted row has not occurred!06-22-2022 SARS-CoV-2 mRNA (tozinameran 5y-11y) vaccine CARLOS ALBERTO DUNN [facility] Payers Date Payer Category Payer Private Health Insurance [id number] 1959 Medicare [id number] 1959 Private Health Insurance CLI [id number] 1955 Unknown [id number] 2.16.84 [id number] 1955 Unknown [id number] 2.16.84 0.1.948993.3.579.2.593 1955 Unknown [id number] 2.16.84 0.1.379299.3.579.2.593 1955 Unknown [id number] 2.16.84 0.1.881663.3.579.2.593 1955 Unknown [id number] 2.16.84 0.1.005697.3.579.2.593 1955 Unknown [id number] 2.16.84 0.1.534513.3.579.2.593 1955 Unknown [id number] 2.16.84 0.1.740856.3.579.2.593 1955 Unknown [id number] 2.16.84 0.1.990789.3.579.2.1259 1955 Unknown [id number] 2.16.84 0.1.141658.3.579.2.1259 1955 Unknown [id number] 2.16.8 40.1.136860.3.579.2.727 1955 Unknown [id number] 2.16.8 40.1.563433.3.579.2.727 1955 Unknown [id number] 2.16.8 40.1.050638.3.579.2.727 1955 Unknown [id number] 2.16.8 40.1.025343.3.579.2.727 1955 Unknown [id number] 2.16.8 40.1.213975.3.579.2.727 1955 Unknown [id number] 2.16.8 40.1.309197.3.579.2.727 1955 Unknown [id number] 2.16.8 40.1.385342.3.579.2.727 1955 Unknown [id number] 2.16.8 40.1.644155.3.579.2.727 Social History Date Type Detail Facility Start: 04-15-2020 End: 11-08-2024 Tobacco smoking status Ex-smoker (finding) [facility] Comment on above: quit age 27 Tobacco smoking status Never [facility] Sex Assigned At Female [facility] Functional Status Date Assessment Result Facility 07-19-2022 Functional Status N/A [facility] 06-22-2022 Functional Status N/A [facility] Clinical Note 12-16-2024 Note Date & Type Note Facility 12-16-2024 Note Patient Education Nutrition BMI for Adults Body mass index (BMI) is a number found using a person's weight and height. BMI can help tell how much of a person's weight is made up of fat. BMI does not measure body fat directly. It is used instead of tests that directly measure body fat, which can be difficult and expensive. What are BMI measurements used for? BMI is useful to: ??? Find out if your weight puts you at higher risk for medical problems. ??? Help recommend changes, such as in diet and exercise. This can help you reach a healthy weight. BMI screening can be done again to see if these changes are working. How is BMI calculated? Your height and weight are measured. The BMI is found from those numbers. This can be done with U.S. or metric measurements. Note that charts and online BMI calculators are available to help you find your BMI quickly and easily without doing these calculations. To calculate your BMI in U.S. measurements: 1. Measure your weight in pounds (lb). 2. Multiply the number of pounds by 703. ??? So, for an adult who weighs 150 lb, multiply that number by 703: 150 x 703, which equals 105,450. 3. Measure your height in inches. Then multiply that number by itself to get a measurement called inches squared. ??? So, for an adult who is 70 inches tall, the inches squared measurement is 70 inches x 70 inches, which equals 4,900 inches squared. 4. Divide the total from step 2 (number of lb x 703) by the total from step 3 (inches squared): 105,450 ? 4,900 = 21.5. This is your BMI. To calculate your BMI in metric measurements: 1. Measure your weight in kilograms (kg). ??? For this example, the weight is 70 kg. 2. Measure your height in meters (m). Then multiply that number by itself to get a measurement called meters squared. ??? So, for an adult who is 1.75 m tall, the meters squared measurement is 1.75 m x 1.75 m, which equals 3.1 meters squared. 3. Divide the number of kilograms (your weight) by the meters squared number. In this example: 70 ? 3.1 = 22.6. This is your BMI. What do the results mean? BMI charts are used to see if you are underweight, normal weight, overweight, or obese. The following guidelines will be used: ??? Underweight: BMI less than 18.5. ??? Normal weight: BMI between 18.5 and 24.9. ??? Overweight: BMI between 25 and 29.9. ??? Obese: BMI of 30 or above. BMI is a tool and cannot diagnose a condition. Talk with your health care provider about what your BMI means for you. Keep these notes in mind: ??? Weight includes fat and muscle. Someone with a muscular build, such as an athlete, may have a BMI that is higher than 24.9. In cases like these, BMI is not a correct measure of body fat. ??? If you have a BMI of 25 or higher, your provider may need to do more testing to find out if excess body fat is the cause. ??? BMI is measured the same way for males and females. Females usually have more body fat than males of the same height and weight. Where to find more information For more information about BMI, including tools to quickly find your BMI, go to: ??? Centers for Disease Control and Prevention: cdc.gov ??? [place] Heart Association: heart.org ??? National Heart, Lung, and Blood [place]: nhlbi.nih.gov This information is not intended to replace advice given to you by your health care provider. Make sure you discuss any questions you have with your health care provider. Document Revised: 07/06/2023 Document Reviewed: 06/29/2023 Elsevier Patient Education ? 2023 [employer]. Obstetrics and Gynecology Breast Self-Awareness Breast self-awareness is knowing how your breasts look and feel. You need to: ??? Check your breasts on a regular basis. ??? Tell your doctor about any changes. Become familiar with the look and feel of your breasts. This can help you catch a breast problem while it is still small and can be treated. You should do breast self-exams even if you have breast implants. What you need: ??? A mirror. ??? A well-lit room. ??? A pillow or other soft object. How to do a breast self-exam Follow these steps to do a breast self-exam: Look for changes 1. Take off all the clothes above your waist. 2. family readiness support assistant front of a mirror in a room with good lighting. 3. Put your hands down at your sides. 4. Compare your breasts in the mirror. Look for any difference between them, such as: ??? A difference in shape. ??? A difference in size. ??? Wrinkles, dips, and bumps in one breast and not the other. 5. Look at each breast for changes in the skin, such as: ??? Redness. ??? Scaly areas. ??? Skin that has gotten thicker. ??? Dimpling. ??? Open sores (ulcers). 6. Look for changes in your nipples, such as: ??? Fluid coming out of a nipple. ??? Fluid around a nipple. ??? Bleeding. ??? Dimpling. ??? Redness. ??? A nipple that looks pushed in (retracted), or t (more content not included)... [facility] Clinical Note 05-14-2024 Note Date & [...] wine (148 mL), (more content not included)... [facility] Hospital Discharge instructions 06-24-2022 Note Date & Type Note Facility 06-24-2022 Hospital Discharg e instructions Follow Up Care 06/24/2022 14:24:44 With:Jerrod HORTON Address: [address] [facility] [place] [address]- Business (1) When: Unknown With:Jerrod HORTON Address: [address] [facility] [place] [address] Business (1) When: Unknown [facility] Hospital Discharge instructions 06-22-2022 Note Date & [...] reconstructed. Follow these instructions at home: Take nnzl-wuj-iymmjpg and prescription medicines only as told by [...] 11/11/2016 Document Revised: 05/29/2019 Document Reviewed: 05/29/2019 CareTo[employer] Patient Education 2020 [employer]. Follow Up Care 06/21/2022 11:45:23 With:SHAUN ROMERO, CARLOS ALBERTO Young, URL Address: [address] [place] [address] When: Unknown [facility] Evaluation + Plan note Note Date & Type Note Facility Evaluation + Plan note No data available for this section [facility] Evaluation + Plan note Note Date & Type Note Facility Evaluation + Plan note Future Appointments Appointment Date:12/16/2024 08:00:00 AM Scheduled Provider: Location:[facility] Appointment Type:FM Medicare Wellness Subsequent [facility] Evaluation + Plan note Note Date & Type Note Facility Evaluation + Plan note Future Appointments Appointment Date:12/16/2024 08:00:00 AM Scheduled Provider: Location:[facility] Appointment Type: Medicare Wellness Subsequent Diagnostic Tests PendingPAP w/ HPV and Genotype rflx 11/08/24 [facility] Hospital Discharge instructions Note Date & Type Note Facility Hospital Discharge instructions No data available for this section [facility] Progress note Note Date & Type Note Facility Progress note No data available for this section [facility] Summary Purpose Family History No Family History Records FoundNo Family History Records Found No data available for this section No data available for this section No Family History Records FoundNo Family History Records Found Advance Directives No Advanced Directives Records FoundNo Advanced Directives Records FoundNo Advanced Directives Records FoundNo Advanced Directives Records Found Additional Source Comments Care Team (unrecognized sect ion and content) Personnel Name: MYKE CORNELIUS MD Address: [address] [place] [id number] Personnel Name: Ian Maurer MD Address: [facility] [place] [address]- Personnel Name: Ina Maurer MD Address: Address: [facility] [address]- INFORMATION SOURCE (unrecogn ized section and content) DATE CREATED AUTHOR 12/13/2022 [facility] DATE CREATED AUTHOR AUTHOR'S ORGANIZ ATION 03/12/2024 [facility] EPIC DATE CREATED AUTHOR AUTHOR'S ORGANIZ ATION 12/16/[address] [facility] DATE CREATED AUTHOR AUTHOR'S ORGANIZ ATION 01/03/2025 [facility] FOR RECORDS PERTAINING TO PATIENTS WHO [...] BE BASED ON THE PRIMARY CLINICAL RECORDS. [facility]. provides no warranty or guarantee of the accuracy or completeness of information in this document.
== END 2025-06-18 06:54 | disposition home or self-care (01) ==
LOC: MAMMO 06:53
PROVIDERS: Visit Provider Family Medicine
DX: Z12.31 Encounter for screening mammogram for malignant neoplasm of breast (principal)
CPT/HCPCS: 77063; 77067